=== PATIENT | male | born 1970 | race Caucasian/White ===

== ENCOUNTER 2020-10-12 17:36 | Inpatient (IN) | payer OTHER, SELFPAY ==
[2020-10-12] VITALS (7 sets, daily range): BP systolic 95–106; BP diastolic 49–70; PULSE 91–106; RESP 14–18; TEMP 36.5–37.7; O2SAT 97–100; BMI 18.6
--- NOTE | 2020-10-12 17:57 | CT_ITS ---
EXAMINATION: CT CHEST, ABDOMEN AND PELVIS WITHOUT CONTRAST CLINICAL INFORMATION: Diarrhea, distention, body aches with fevers and chills. COMPARISON: Chest x-ray 07/04/2020 TECHNIQUE: 5 mm thin axial and reformatted 3 mm thin sagittal and coronal images of chest, abdomen pelvis were obtained without contrast. DLP 1028 FINDINGS: Chest: There is centrilobular emphysematous changes of both lungs. No acute pneumonic consolidation seen. There is platelike atelectasis right lower lobe adjacent to the major fissure. There is 3 mm nodule right lower lobe axial image 263/7. In addition there is mild nodularity along the right major fissure axial image 263/7 and 255/7. There is bilateral small pleural effusions. No pleural thickening or calcification seen. The thyroid lobes are symmetrical and normal. The central trachea and the bronchi widely patent. Small shotty lymph nodes are seen in the mediastinum. The largest subpectoral lymph node measures 7 mm. No abnormal mediastinal mass seen. The axilla and the chest wall appears unremarkable. Abdomen and pelvis: The liver is compressed by diffuse ascites no focal lesion seen. No intrahepatic ductal dilatation. In the left upper quadrant spleen is not visualized. In its place is a large cystic lesion with some heterogeneity within the adjacent calcification and lakesha which could be secondary to splenectomy. The lesion measures 8.1 x 6.5 x 7.3 cm. The cystic lesion in the body of the pancreas measuring 1.6 x 1.1 cm. Previously it measured 2.3 x 3.3 cm and is much smaller. There are surgical lakesha visualized in the tail of the pancreas likely from previous intervention. The gallbladder is nondistended with a small radiolucent 1.2 cm stone. The adrenal glands are unremarkable. Both kidneys are normal size, shape and position. No radiopaque renal calculi or hydronephrosis seen. Diffuse sigmoid diverticulosis with residual barium within the diverticuli in the sigmoid and descending colon. No colonic distention seen. Scattered fluid visualized in small bowel loops without distention. There is postsurgical changes or sutures seen in the upper pelvis likely small bowel loops on axial image 61/8. Appendix is not seen. There is no free air. There is a large amount of ascites. The abdominal aorta is normal caliber. Mild periportal lymph nodes are visualized, similar to previous study. There is evidence of previous periumbilical anterior abdominal wall hernia repair with mesh in place with mild scarring or thickening in this region. Imaging to the pelvis reveals nondistended urinary bladder the prostate gland is normal. Bone windows reveal no lytic or sclerotic process. CT/CT abdomen pelvis wo con IMPRESSION: Bilateral small pleural effusions. The millimeter nodule right lower lobe and atelectatic changes right lower lobe. Resident lower abdomen diffuse ascites with mass effect on the abdominal structures. There are postsurgical changes in the tail of pancreas is small cystic lesion in the mid pancreas small and previous study. The spleen is absent. In its place is a cystic lesion with internal heterogeneity, stable or smaller. This may represent a intracapsular old hematoma/seroma or cystic lesion continuous with the tail of the pancreas described previously. Solitary radiolucent gallstone. Soft tissue lesion is considered less likely. Consider ultrasound abdomen.
--- NOTE | 2020-10-12 17:57 | ECG_ITS ---
Test Reason : ABDOMINALPAIN Blood Pressure : / mmHG Vent. Rate : 095 BPM Atrial Rate : 095 BPM P-R Int : 150 ms QRS Dur : 118 ms QT Int : 400 ms P-R-T Axes : 083 097 074 degrees QTc Int : 502 ms Normal sinus rhythm Pulmonary disease pattern Right bundle branch block Abnormal ECG When compared with ECG of 04-JUL-2020 08:03, ST now depressed in Anterior leads T wave inversion now evident in Anterior leads Referred By: Juana Lei Electronically Signed By:PHYLLIS ESPINOSA
--- NOTE | 2020-10-12 18:03 | ED_ITS ---
HPI - Abdominal Pain General Chief Complaint: General Medical Stated Complaint: N/V,BODY ACHES,CHILLS,?FEVER,? COVID Time Seen by Provider: 10/12/20 17:50 Source: patient and old records reviewed Mode of arrival: EMS Limitations: other (very poor historian) History of Present Illness HPI narrative: body aches, abdominal pain and diarrhea x 2 days, left [facility] on 10/04 that was his last negative COVID test, EMS found a handle of vodka that was empty in the house MD elicited complaint: abdominal pain and other (diarrhea, body aches) Pertinent past history: other (ETOH pancreatitis) Onset (ago): day(s) (2) Pain Consistency: constant Location: diffuse Severity: severe Quality: stabbing Radiation: none Migration to: no migration Exacerbating factors: movement Relieving factors: nothing Context: history of similar episodes Associated symptoms: nausea, diarrhea, chills and other (body aches) Related Data Home Medications Medication Instructions Recorded Confirmed furosemide 20 mg PO DAILY 10/12/20 10/12/20 hydroxyzine HCl 25 mg PO QID PRN 10/12/20 10/12/20 [id number] [Zenpep] 1 cap PO TID 10/12/20 10/12/20 oxycodone 10 mg PO QID PRN 10/12/20 10/12/20 Allergies Allergy/AdvReac Type Severity Reaction Status Date / Time No Known Allergies Allergy Unverified 06/30/20 14:48 Review of Systems Review of Systems Constitutional : No Weight loss, No Fever, pos Chills ENT/Mouth : No sore throat, No Rhinorrhea Eyes: No Swelling, No Redness Cardiovascular : No Chest Pain, No SOB, pos Edema Respiratory : No Cough, No Sputum, No Wheezing Gastrointestinal : Positive Nausea, no Vomiting, positive Diarrhea, positive abdominal Pain, No Hematochezia, No Melena Genitourinary : No Dysuria, No Urinary Frequency, No Hematuria, No Urgency Musculoskeletal : No joint pain, No Myalgias, No Joint Swelling Skin : No Skin Lesions, No rash Neuro : pos Weakness, No Numbness, No Dizziness, No Headache Psych : No Anxiety/Panic, No Depression Heme/Lymph: No Bruising, No Lymphadenopathy Endocrine : No Polyuria, No Polydipsia All other systems reviewed and are negative. Physical Exam Vital Signs: Vital Signs: Last Vital Signs Temp 97.7 F 10/12/20 19:39 Pulse 94 10/12/20 21:00 Resp 16 10/12/20 20:50 BP 99/61 10/12/20 21:00 Pulse Ox 97 10/12/20 19:39 Body Mass Index 18.6 Appearance: Alert. Oriented X3. Anxious mild acute distress. Eyes: Pupils equal, round and reactive to light. ENT: Pharynx normal. Neck: Normal inspection. Neck supple. CVS: Normal heart rate and rhythm. Pulses normal. Respiratory: No respiratory distress. Breath sounds normal. Abdomen: Soft and distended with moderate tenderness. Skin: Skin warm and dry. Normal skin color. Normal skin turgor. Extremities: bilateral pitting 1+ lower extremity edema. No calf ttp Left calf ulcer noted with no sig drainage and no odor, mild surrounding erythema Neuro: Oriented X 3. No motor deficit. No sensory deficit. Procedures Paracentesis Time Out Performed: Yes Indication: possible spontaneous bacterial peritonitis Procedure: diagnostic paracentesis Location: RLQ Local Anesthetic: lidocaine 1% Amount of anesthesia used (mL): 5 Bedside Ultrasound Used: yes, Ascites confirmed and location marked Preparation: sterile prep and drape Amount of fluid obtained (mL): 3,000 Fluid: cloudy Post Procedure Exam: awake, alert Patient Tolerated Procedure: well Complications: none Course Course Course Narrative: given WBC count, ascites and c/o pain with chills at home, prophylactic SBP treatment done, anticipate admission at this time MDM - Abdominal Pain MDM Narrative Medical decision making narrative: 50 yo male with hx of ETOH, pancreatitis s/p splenectomy and hernia repair here with abdominal pain /distention and found to have empty handle of vodka in house, could be obstruction/pancreatitis with ileus at this time will obtain labs, EKG, CXR, CT scan of abdomen for pancreatitis, IVF, IV albumin, IV fentanyl for pain Lab Data Result diagrams: 10/12/20 20:06 10/12/20 20:06 Labs: Lab Results 10/12/20 10/12/20 10/12/20 Range/Units 20:05 20:05 20:05 WBC (4.8-10.8) X10*3/uL RBC (4.60-5.80) X10*6/uL Hgb (14.0-18.0) g/dl Hct (42-52) % MCV (80-98) fL MCH (27.0-33.0) pg MCHC (31.0-36.0) g/dl RDW (11.0-16.0) % Plt Count (160-400) X10*3/uL MPV (9.4-12.4) fL Immature Gran % (Auto) (0.0-0.4) % Neut % (Auto) (45-73) % Lymph % (Auto) (20-40) % [place] % (Auto) (2-11) % Eos % (Auto) (0-4) % Baso % (Auto) (0-2) % Lymph # (Auto) (1.2-4.9) X10*3/uL [place] # (Auto) (0.1-1.2) X10*3/uL Eos # (Auto) (0.0-0.4) X10*3/uL Baso # (Auto) (0.0-0.2) X10*3/uL Abs Immat Gran (auto) (0.00-0.03) X10*3/uL Absolute Neuts (auto) (2.0-8.3) X10*3/uL Absolute Nucleated RBC (0.0-0.012) X10*3/uL Nucleated RBC % (auto) (0.0-0.2) /100WBC Smear Tech's Comments PT 19.4 H (10.8-13.0) SEC INR 1.6 H (0.9-1.1) APTT 37.7 (24.1-38.0) SEC Lactic Acid 1.8 (0.5-2.0) mmol/L Calcium 7.2 L (8.4-10.2) mg/dL Magnesium 1.5 L (1.6-2.6) mg/dL Total Bilirubin 1.2 H (0.0-1.0) mg/dL Direct Bilirubin 0.8 H (0.0-0.5) mg/dL AST 34 (5-37) U/L ALT 20 (0-40) U/L Alkaline Phosphatase 121 H (39-117) U/L Ammonia (13-55) umol/L Lactate Dehydrogenase 161 (118-273) U/L Total Protein 6.2 L (6.5-8.0) g/dL Albumin 1.5 L (3.5-5.0) g/dL Lipase 53 (8-78) U/L COVID-19 (SANAZ) (Negative) COVID-19 Clin Com 10/12/20 10/12/20 10/12/20 Range/Units 20:06 20:06 20:06 WBC 16.6 H (4.8-10.8) X10*3/uL RBC 3.00 L (4.60-5.80) X10*6/uL Hgb 9.6 L (14.0-18.0) g/dl Hct 27.0 L (42-52) % MCV 90.0 (80-98) fL MCH 32.0 (27.0-33.0) pg MCHC 35.6 (31.0-36.0) g/dl RDW 15.9 (11.0-16.0) % Plt Count 361 (160-400) X10*3/uL MPV 9.7 (9.4-12.4) fL Immature Gran % (Auto) 0.4 (0.0-0.4) % Neut % (Auto) 75.0 H (45-73) % Lymph % (Auto) 15.0 L (20-40) % [place] % (Auto) 9.1 (2-11) % Eos % (Auto) 0.1 (0-4) % Baso % (Auto) 0.4 (0-2) % Lymph # (Auto) 2.5 (1.2-4.9) X10*3/uL [place] # (Auto) 1.5 H (0.1-1.2) X10*3/uL Eos # (Auto) 0.0 (0.0-0.4) X10*3/uL Baso # (Auto) 0.1 (0.0-0.2) X10*3/uL Abs Immat Gran (auto) 0.06 H (0.00-0.03) X10*3/uL Absolute Neuts (auto) 12.4 H (2.0-8.3) X10*3/uL Absolute Nucleated RBC 0.000 (0.0-0.012) X10*3/uL Nucleated RBC % (auto) 0.0 (0.0-0.2) /100WBC Smear Tech's Comments VERIFIED PT (10.8-13.0) SEC INR (0.9-1.1) APTT (24.1-38.0) SEC Lactic Acid (0.5-2.0) mmol/L Calcium (8.4-10.2) mg/dL Magnesium (1.6-2.6) mg/dL Total Bilirubin (0.0-1.0) mg/dL Direct Bilirubin (0.0-0.5) mg/dL AST (5-37) U/L ALT (0-40) U/L Alkaline Phosphatase (39-117) U/L Ammonia 55 (13-55) umol/L Lactate Dehydrogenase (118-273) U/L Total Protein (6.5-8.0) g/dL Albumin (3.5-5.0) g/dL Lipase (8-78) U/L COVID-19 (SANAZ) Negative (Negative) COVID-19 Clin Com See Note ECG Data Attestation: I personally reviewed and interpreted this ECG as follows: ECG interpretation date: 10/12/20 ECG interpretation time: 19:10 Interpretation: Rate: 95 Rhythm: NSR [place]: right Normal P waves. Normal YUDI. RBBB ST T wave : nonspecific no JOSE qTC: prolonged prior studies: no change from prior no acute ischemia The study has been interpreted contemporaneously by me. . Critical Care Time Critical Care Time Critical Care Time: Yes Total Critical Care Time: 60 Attestation: repeat IV medications, review of records, paracentesis, volume resuscitation I attest to this time spent taking care of the patient Discharge Plan Discharge Clinical Impression: Ascites, Myalgia, Hypomagnesemia Patient Disposition: Admitted As Inpatient Prescriptions: No Action hydroxyzine HCl 25 mg Tablet 25 mg PO QID PRN (Reason: Anxiety) RF: 0 furosemide 20 mg tablet 20 mg PO DAILY RF: 0 oxycodone 10 mg tablet 10 mg PO QID PRN (Reason: Pain (Scale Score 7-10)) RF: 0 Zenpep 5,000-17,000- 24,000 unit capsule,delayed release(DR/EC) 1 cap PO TID RF: 0 PMFSH Past Medical History Attestation statement: The following information was validated with the patient. Medical History Alcoholism GERD (gastroesophageal reflux disease) HTN (hypertension) Liver disease Pancreatitis PTSD (post-traumatic stress disorder) Seizure Surgical History H/O hernia repair H/O splenectomy Social History Social History (Updated 10/12/20 @ 18:29 by Juana Lei DO) Alcohol intake: current Smoking Status: Never smoker Use of substances other than those prescribed or required for medical reasons: No Advance Directives: No Advance Directives Information Provided: No
[2020-10-12] MEDS: Albumin Human 25 % 100 ML IV ×2 (18:54→21:42)
[2020-10-12] MEDS: fentaNYL citrate/PF 100 MCG/2 ML VIAL 25 MCG IVPUSH ×2 (18:54→20:50)
[2020-10-12] MEDS: ondansetron HCL 4 MG/2 ML VIAL IVPUSH (18:54)
[2020-10-12] MEDS: cefTRIAXone sodium 1 GM in 0.9 % Sodium Chloride 50 ML IV (19:30)
[2020-10-12] MEDS: 0.9 % Sodium Chloride 500 ML IV (19:31)
--- NOTE | 2020-10-12 20:15 | PC.NURSE ---
Patient reporting 9/10 fully body pain, yells when touched anywhere. Reports being bone chilling cold. Extra blankets given. afebrile. Pending blood work and covid result to move pt to main ER for further care. Fluids infusing.
[2020-10-12 20:17] LABS: Basophils Absolute Auto 0.1 X10*3/uL (0.0-0.2); Basophils Percent Auto 0.4 % (0-2); Eosinophils Percent Auto 0.1 % (0-4); Hemoglobin 9.6 g/dl (14.0-18.0); Imm Gran Abs Auto 0.06 X10*3/uL (0.00-0.03); Imm Gran Pct Auto 0.4 % (0.0-0.4); Lymphocytes Absolute Auto 2.5 X10*3/uL (1.2-4.9); MANUAL DIFF FLAG SCAN; Mean Corpuscular HGB Conc 35.6 g/dl (31.0-36.0); Mean Platelet Volume 9.7 fL (9.4-12.4); Monocytes Absolute Auto 1.5 X10*3/uL (0.1-1.2); Monocytes Percent Auto 9.1 % (2-11); Neutrophils Absolute Auto 12.4 X10*3/uL (2.0-8.3); Platelet Count 361 X10*3/uL (160-400); Red Cell Distribution Width 15.9 % (11.0-16.0); SCAN SMEAR FLAG 1; White Blood Count 16.6 X10*3/uL (4.8-10.8)
[2020-10-12 20:24] LABS: INTERNATIONAL NORM RATIO 1.6 (0.9-1.1); Prothrombin Time 19.4 SEC (10.8-13.0)
[2020-10-12 20:26] LABS: Partial Thromboplastin Time 37.7 SEC (24.1-38.0)
[2020-10-12 20:31] LABS: Ammonia 55 umol/L (13-55); COVID-19 Test Negative (Negative)
[2020-10-12 20:35] LABS: SLIDE REVIEW VERIFIED
[2020-10-12 20:35] LABS: Lactic Acid 1.8 mmol/L (0.5-2.0)
[2020-10-12] MEDS: Lidocaine HCl 2 % MPF 5 ML VIAL SUBCUT (20:55)
[2020-10-12 21:01] LABS: Alanine Aminotransferase 20 U/L (0-40); Albumin Level 1.5 g/dL (3.5-5.0); Alkaline Phosphatase 121 U/L (39-117); Aspartate Amino Transferase 34 U/L (5-37); Bilirubin Direct 0.8 mg/dL (0.0-0.5); Bilirubin Total 1.2 mg/dL (0.0-1.0); Calcium 7.2 mg/dL (8.4-10.2); Lactate Dehydrogenase 161 U/L (118-273); Lipase 53 U/L (8-78); Magnesium 1.5 mg/dL (1.6-2.6); Total Protein 6.2 g/dL (6.5-8.0)
--- NOTE | 2020-10-12 21:15 | PC.NURSE ---
care assumed at 2044- pt moved to main ed, plan for periccentesis per dr. harden.
[2020-10-12] MEDS: Magnesium Sulfate/H2O 2 GM/50 ML PIGGYBACK IV (21:42)
[2020-10-12 22:04] LABS: RBC Peritoneal Fluid < 0.002 X10*6/uL; WBC Peritoneal Fluid < 0.003 X10*3/uL
[2020-10-12 22:26] LABS: B Type Natriuretic Peptide 105 pg/mL (<100)
[2020-10-12 22:31] LABS: BF Shift QC OK YES; Man Diluent Bkgrd OK YES
[2020-10-12 22:32] LABS: Monocytes Peritoneal Fl 83 %; Neutrophils Peritoneal Fluid 17 %
[2020-10-12 22:33] LABS: Ethanol < 10 mg/dL
[2020-10-12 22:33] LABS: Anion Gap 12 (12-20); Blood Urea Nitrogen 8 mg/dL (9-16); Calcium 7.2 mg/dL (8.4-10.2); Carbon Dioxide 25 mmol/L (22-29); Chloride 103 mmol/L (96-108); Creatinine Clr Calc Pharmacy 142.9; Estimated Glomerular Filt Rate > 60; Glucose Random 102 mg/dL (60-115); Potassium 3.5 mmol/l (3.3-5.1); Sodium 136 mmol/L (135-145)
[2020-10-12] MEDS: Midodrine HCl 5 MG TABLET PO (22:59)
[2020-10-13] VITALS (11 sets, daily range): BP systolic 86–109; BP diastolic 52–76; PULSE 73–91; RESP 14–20; TEMP 36.4–36.9; O2SAT 97–100
--- NOTE | 2020-10-13 01:22 | US_ITS ---
EXAMINATION: US ABDOMEN COMPLETE CLINICAL INFORMATION: Gallstones seen on CT. COMPARISON: CT abdomen and pelvis 10/12/2020 TECHNIQUE: Real-time imaging of the abdominal viscera. FINDINGS: Limited exam due to overlying gas. PANCREAS: Normal. ABDOMINAL AORTA: The mid and distal segments abdominal aorta normal caliber. The proximal abdominal aorta is not visualized. INFERIOR VENA CAVA: Visualized portions are normal. LIVER: There is mild ascites. The liver is normal in size. The liver contour is normal. Parenchymal echogenicity is normal. No focal hepatic lesion. There is no intrahepatic biliary duct dilatation seen. GALLBLADDER: There are multiple non shadowing echogenic gallstones and echogenic debris. No wall thickening seen. Gallbladder wall thickness of 0.6 cm. COMMON BILE DUCT: Normal in caliber measuring 0.6 cm in diameter. RIGHT KIDNEY: Normal. No hydronephrosis. No renal calculi or focal parenchymal lesions. The kidney measures 10.9 cm in maximum dimension. LEFT KIDNEY: Normal. No hydronephrosis. No renal calculi or focal parenchymal lesions. The kidney measures 10.2 cm in maximum dimension. SPLEEN: There is anechoic complex cystic lesion seen in in the splenic fossa and measures 9.0 x 7.0 cm. The spleen has been surgically removed. FREE FLUID: None. US/US abdomen complete IMPRESSION: Mild ascites. The liver is diffusely echogenic without any focal lesions. No echogenic debris and echogenic gallstones with wall thickness of 0.6 cm. Spleen has been surgically removed. In the splenic fossa is a complex cystic lesion question old hematoma/seroma.
[2020-10-13] MEDS: oxyCODONE HCl Immed Release 5 MG TABLET 10 MG PO ×2 (01:32→17:02)
[2020-10-13] MEDS: Morphine Sulfate 2 MG/ML CARTRIDGE IVPUSH ×4 (02:24→20:06)
[2020-10-13 03:29] LABS: CDIFF Ag Negative (Negative); CDIFF Internal ctrl Dots and bkg OK (V); CDiff Toxin Negative (Negative)
[2020-10-13 05:38] LABS: Basophils Absolute Auto 0.1 X10*3/uL (0.0-0.2); Basophils Percent Auto 0.5 % (0-2); Eosinophils Percent Auto 0.1 % (0-4); Hematocrit 22.8 % (42-52); Hemoglobin 8.2 g/dl (14.0-18.0); Imm Gran Abs Auto 0.04 X10*3/uL (0.00-0.03); Imm Gran Pct Auto 0.3 % (0.0-0.4); Lymphocytes Absolute Auto 2.5 X10*3/uL (1.2-4.9); Lymphocytes Percent Auto 19.1 % (20-40); Mean Corpuscular Hemoglobin 32.3 pg (27.0-33.0); Mean Corpuscular Volume 89.8 fL (80-98); Mean Platelet Volume 9.7 fL (9.4-12.4); Monocytes Absolute Auto 1.7 X10*3/uL (0.1-1.2); Monocytes Percent Auto 12.9 % (2-11); Neutrophils Absolute Auto 8.7 X10*3/uL (2.0-8.3); Neutrophils Percent Auto 67.1 % (45-73); Platelet Count 324 X10*3/uL (160-400); Red Blood Count 2.54 X10*6/uL (4.60-5.80); Red Cell Distribution Width 15.3 % (11.0-16.0); SCAN SMEAR FLAG 1; White Blood Count 12.9 X10*3/uL (4.8-10.8)
[2020-10-13 05:41] LABS: MANUAL DIFF FLAG NO
[2020-10-13 06:14] LABS: Anion Gap 10 (12-20); Blood Urea Nitrogen 8 mg/dL (9-16); Calcium 7.2 mg/dL (8.4-10.2); Carbon Dioxide 23 mmol/L (22-29); Chloride 104 mmol/L (96-108); Creatinine Clr Calc Pharmacy 154.8; Estimated Glomerular Filt Rate > 60; Glucose Random 130 mg/dL (60-115); Potassium 3.1 mmol/l (3.3-5.1); Sodium 134 mmol/L (135-145)
[2020-10-13 06:26] LABS: pH Peritoneal Fluid 7.66
--- NOTE | 2020-10-13 06:27 | PM.IMHP ---
History of Present Illness Date of Service: 10/12/20 Chief Complaint: Abdominal pain This is a 50-year-old male with past medical history of liver cirrhosis secondary to alcoholism, hypertension, pancreatitis, PTSD, seizure who presents to the hospital with complaints of generalized body ache worse in the belly. Patient reports that his abdomen has been hurting for the past 4 days, nonradiating, 10/10, associated with chills but no fever, has some nausea, and constant diarrhea all day, he has no urinary symptoms and no lower extremity edema. Patient reports that he has not gotten his paracentesis since April and would like to have his abdomen drained. Patient denies any other symptoms including no headache, change in vision, no chest pain, no shortness of breath, no weakness or tingling. to the ED found to have a blood pressure of 95/64, temp of 99.8?, heart rate of 92, respiratory rate of 16, satting 98% on room air. Hemoglobin of 16.6 which appears to be chronic, sodium of 134, potassium of 3.1, BUN of 8, creatinine of 0.48, BNP of 105, magnesium of 1.5, total bili of 1.2, direct of 0.08, albumin of 1.5 Past medical history: Liver cirrhosis secondary to alcohol use, hypertension, pancreatitis, PTSD, seizure Surgical history: Splenectomy, hernia repair Family history: Patient is Not sure Social history: Comes from home, smokes more than pack a day he has been drinking few days but drink yesterday, denies any history of withdrawals, does not use illicit drugs Review of Systems Review of Systems: Yes all other systems are reviewed and are negative [facility] Medical History Alcoholism GERD (gastroesophageal reflux disease) HTN (hypertension) Liver disease Pancreatitis PTSD (post-traumatic stress disorder) Seizure Surgical History H/O hernia repair H/O splenectomy Social History (Updated 10/12/20 @ 18:29 by Juana Lei DO) Alcohol intake: former Smoking Status: Current every day smoker Use of substances other than those prescribed or required for medical reasons: No Advance Directives: No Advance Directives Information Provided: No Meds Allergies Allergy/AdvReac Type Severity Reaction Status Date / Time No Known Allergies Allergy Unverified 06/30/20 14:48 Home Medications Medication Instructions Recorded Confirmed Type furosemide 20 mg PO DAILY 10/12/20 10/12/20 History hydroxyzine HCl 25 mg PO QID PRN 10/12/20 10/12/20 History qffchc-dcpovwaz-wijcuzw [Zenpep] 1 cap PO TID 10/12/20 10/12/20 History oxycodone 10 mg PO QID PRN 10/12/20 10/12/20 History Physical Exam Vital Signs and Narrative: Vital Signs: Last Vital Signs Temp 98.1 F 10/13/20 06:11 Pulse 77 10/13/20 06:11 Resp 16 10/13/20 06:11 BP 92/59 L 10/13/20 06:11 Pulse Ox 100 10/13/20 06:11 Body Mass Index 18.6 Const: General: cooperative and no acute distress Orientation/consciousness: patient oriented x3 Eyes: General: appearance normal, both eyes and all related structures Pupils: Equal, round and reactive pupils present Resp: Effort & Inspection: normal respiratory effort and able to speak in complete sentences Cardio: Rate: regular rate Rhythm: regular rhythm GI: Other: Patient screams ?ow? even when I likely touch his abdomen. I was not able to do a complete abdominal exam due to his severe tenderness. Even without me touching him patient is screaming in pain Palpation (GI): Soft to palpation Skin: General skin exam: no rashes or lesions noted Neuro: General: patient oriented x3 Cranial nerves: Yes Equal, round and reactive pupils present Cognition (Neuro): normal cognition Extrem: General: Yes normal to inspection and Yes no pedal edema Results Labs CBC and Chem 7: 10/12/20 20:06 10/13/20 05:32 Labs: Laboratory Results - last 24 hr 10/12/20 10/12/20 10/12/20 10:14 20:05 20:05 MCV MCH MCHC RDW Plt Count MPV Immature Gran % (Auto) Neut % (Auto) Lymph % (Auto) [place] % (Auto) Eos % (Auto) Baso % (Auto) Lymph # (Auto) [place] # (Auto) Eos # (Auto) Baso # (Auto) Abs Immat Gran (auto) Absolute Neuts (auto) Absolute Nucleated RBC Nucleated RBC % (auto) Smear Tech's Comments PT 19.4 H INR 1.6 H APTT 37.7 Anion Gap Estim Creat Clear Calc Estimated GFR Random Glucose Lactic Acid Calcium 7.2 L Magnesium 1.5 L Total Bilirubin 1.2 H Direct Bilirubin 0.8 H AST 34 ALT 20 Alkaline Phosphatase 121 H Ammonia Lactate Dehydrogenase 161 Total Creatine Kinase 32 L B-Natriuretic Peptide Total Protein 6.2 L Albumin 1.5 L Lipase 53 Peritoneal pH Peritoneal WBC Peritoneal RBC Periton Neutrophils Peritoneal Monocytes Ethyl Alcohol C. difficile Toxin A&B C. difficile Antigen C. difficile Interpret COVID-19 ([facility]) COVID-19 Clin Com 10/12/20 10/12/20 10/12/20 20:05 20:06 20:06 MCV MCH MCHC RDW Plt Count MPV Immature Gran % (Auto) Neut % (Auto) Lymph % (Auto) [place] % (Auto) Eos % (Auto) Baso % (Auto) Lymph # (Auto) [place] # (Auto) Eos # (Auto) Baso # (Auto) Abs Immat Gran (auto) Absolute Neuts (auto) Absolute Nucleated RBC Nucleated RBC % (auto) Smear Tech's Comments PT INR APTT Anion Gap 12 Estim Creat Clear Calc 142.9 Estimated GFR > 60 Random Glucose 102 Lactic Acid 1.8 Calcium 7.2 L Magnesium Total Bilirubin Direct Bilirubin AST ALT Alkaline Phosphatase Ammonia 55 Lactate Dehydrogenase Total Creatine Kinase B-Natriuretic Peptide Total Protein Albumin Lipase Peritoneal pH Peritoneal WBC Peritoneal RBC Periton Neutrophils Peritoneal Monocytes Ethyl Alcohol C. difficile Toxin A&B C. difficile Antigen C. difficile Interpret COVID-19 ([facility]NAZ) COVID-19 Clin Com 10/12/20 10/12/20 10/12/20 20:06 20:06 20:06 MCV 90.0 MCH 32.0 MCHC 35.6 RDW 15.9 Plt Count 361 MPV 9.7 Immature Gran % (Auto) 0.4 Neut % (Auto) 75.0 H Lymph % (Auto) 15.0 L [place] % (Auto) 9.1 Eos % (Auto) 0.1 Baso % (Auto) 0.4 Lymph # (Auto) 2.5 [place] # (Auto) 1.5 H Eos # (Auto) 0.0 Baso # (Auto) 0.1 Abs Immat Gran (auto) 0.06 H Absolute Neuts (auto) 12.4 H Absolute Nucleated RBC 0.000 Nucleated RBC % (auto) 0.0 Smear Tech's Comments VERIFIED PT INR APTT Anion Gap Estim Creat Clear Calc Estimated GFR Random Glucose Lactic Acid Calcium Magnesium Total Bilirubin Direct Bilirubin AST ALT Alkaline Phosphatase Ammonia Lactate Dehydrogenase Total Creatine Kinase B-Natriuretic Peptide 105 H Total Protein Albumin Lipase Peritoneal pH Peritoneal WBC Peritoneal RBC Periton Neutrophils Peritoneal Monocytes Ethyl Alcohol C. difficile Toxin A&B C. difficile Antigen C. difficile Interpret COVID-19 ([facility]NAZ) Negative COVID-19 Celiro Com See Note 10/12/20 10/12/20 10/12/20 20:07 21:28 21:28 MCV MCH MCHC RDW Plt Count MPV Immature Gran % (Auto) Neut % (Auto) Lymph % (Auto) [place] % (Auto) Eos % (Auto) Baso % (Auto) Lymph # (Auto) [place] # (Auto) Eos # (Auto) Baso # (Auto) Abs Immat Gran (auto) Absolute Neuts (auto) Absolute Nucleated RBC Nucleated RBC % (auto) Smear Tech's Comments PT INR APTT Anion Gap Estim Creat Clear Calc Estimated GFR Random Glucose Lactic Acid Calcium Magnesium Total Bilirubin Direct Bilirubin AST ALT Alkaline Phosphatase Ammonia Lactate Dehydrogenase Total Creatine Kinase B-Natriuretic Peptide Total Protein Albumin Lipase Peritoneal pH 7.66 Peritoneal WBC < 0.003 Peritoneal RBC < 0.002 Periton Neutrophils 17 Peritoneal Monocytes 83 Ethyl Alcohol < 10 C. difficile Toxin A&B C. difficile Antigen C. difficile Interpret COVID-19 ([facility]) COVID-[employer] 10/13/20 10/13/20 02:44 05:32 MCV MCH MCHC RDW Plt Count MPV Immature Gran % (Auto) Neut % (Auto) Lymph % (Auto) [place] % (Auto) Eos % (Auto) Baso % (Auto) Lymph # (Auto) [place] # (Auto) Eos # (Auto) Baso # (Auto) Abs Immat Gran (auto) Absolute Neuts (auto) Absolute Nucleated RBC Nucleated RBC % (auto) Smear Tech's Comments PT INR APTT Anion Gap 10 L Estim Creat Clear Calc 154.8 Estimated GFR > 60 Random Glucose 130 H Lactic Acid Calcium 7.2 L Magnesium Total Bilirubin Direct Bilirubin AST ALT Alkaline Phosphatase Ammonia Lactate Dehydrogenase Total Creatine Kinase B-Natriuretic Peptide Total Protein Albumin Lipase Peritoneal pH Peritoneal WBC Peritoneal RBC Periton Neutrophils Peritoneal Monocytes Ethyl Alcohol C. difficile Toxin A&B Negative C. difficile Antigen Negative C. difficile Interpret SEE NOTE COVID-19 ([facility]) COVID-19 Clin Com Imaging Radiologist's Impressions: Impressions Abdomen/Pelvis CT 10/12/20 17:57 IMPRESSION: Bilateral small pleural effusions. The millimeter nodule right lower lobe and atelectatic changes right lower lobe. Resident lower abdomen diffuse ascites with mass effect on the abdominal structures. There are postsurgical changes in the tail of pancreas is small cystic lesion in the mid pancreas small and previous study. The spleen is absent. In its place is a cystic lesion with internal heterogeneity, stable or smaller. This may represent a intracapsular old hematoma/seroma or cystic lesion continuous with the tail of the pancreas described previously. Solitary radiolucent gallstone. Soft tissue lesion is considered less likely. Consider ultrasound abdomen. Chest CT 10/12/20 17:57 IMPRESSION: Bilateral small pleural effusions. The millimeter nodule right lower lobe and atelectatic changes right lower lobe. Resident lower abdomen diffuse ascites with mass effect on the abdominal structures. There are postsurgical changes in the tail of pancreas is small cystic lesion in the mid pancreas small and previous study. The spleen is absent. In its place is a cystic lesion with internal heterogeneity, stable or smaller. This may represent a intracapsular old hematoma/seroma or cystic lesion continuous with the tail of the pancreas described previously. Solitary radiolucent gallstone. Soft tissue lesion is considered less likely. Consider ultrasound abdomen. Assessment and Plan (1) Intractable abdominal pain: Status: Acute (2) Ascites: Qualifiers: Ascites type: due to alcoholic cirrhosis Qualified Code(s): K70.31 - Alcoholic cirrhosis of liver with ascites Status: Acute (3) Hypomagnesemia: Status: Acute (4) Diarrhea: Status: Acute This is a 50-year-old male with past medical history of alcoholic cirrhosis who presents to the hospital with abdominal pain # intractable abdominal pain - most likely secondary to ascites - SBP ruled out with paracentesis being negative for elevated WBC or neutrophil count - had 3 L drained by ED physician - will start him on pain medications - follow peritoneal cultures # diarrhea - denies using any antibiotics recently - will send for C diff # hypomagnesemia - repleted - follow level # ascites - high 3 L of paracentesis in the ED - follow cultures - may need scheduled thoracentesis for the future DVT prophylaxis: Heparin subQ
[2020-10-13 06:28] LABS: Albumin Peritoneal Fluid 0.6; LDH Peritoneal Fluid 48; Total Protein Peritoneal Fluid 1.4
[2020-10-13 06:29] LABS: Glucose Peritoneal Fluid 100
--- NOTE | 2020-10-13 07:17 | PC.NURSE ---
report taken from louise beckham pt sitting up in bed, asking for juice, tolerating po w/o issue. pt asking about pain medication. pt educated about recent admin and indication to spread narcotic pain med administration out for safety. pt has cognitive delay, requires frequent redirection. plan for inpt admission.
[2020-10-13] MEDS: Heparin Sodium,Porcine 5,000 UNIT/ML VIAL 5000 UNIT SUBCUT (08:34)
[2020-10-13] MEDS: Nicotine 21 MG PATCH.TD24 TRANSDERMA (08:35)
[2020-10-13] MEDS: Acetaminophen 325 MG TABLET 650 MG PO (08:39)
[2020-10-13] MEDS: 0.9 % Sodium Chloride Flush 3 ML SYRINGE IVFLUSH ×3 (08:39→20:12)
--- NOTE | 2020-10-13 08:47 | PC.NURSE ---
pt back from [facility], medicated per emar. asking for prn tylenol, given. pt tolerating po. personal effects moved closer to bedside. awaiting bed assignment.
--- NOTE | 2020-10-13 15:56 | P.PNIM_ITS ---
Subjective Subjective Date of Service: 10/13/20 Interval History: seen and examined this afternoon in the ED awaiting bed to the floor reports abdominal pain improved reports drinking daily last few days, just a few sips reports n/v/d -- unclear if with blood or not ROS General - no fevers or chills Cardiovascular - no chest pain Respiratory - no shortness of breath or cough Abdominal- +abdominal pain Physical Exam Vital Signs: Vital Signs: Last Vital Signs Temp 98.1 F 10/13/20 06:11 Pulse 76 10/13/20 15:23 Resp 16 10/13/20 15:23 BP 98/63 10/13/20 15:23 Pulse Ox 97 10/13/20 15:23 Body Mass Index 18.6 Const: Other: General - no acute distress, appears comfortable Cardiovascular - regular rate and rhythm, S1-S2 Lungs - normal respiratory effort, clear to auscultation bilaterally, no wheezing Abdomen - mildly distended -- no rebound or guarding Extremities - no edema bilaterally Neuro - awake and alert Objective Data Current Medications Generic Name Dose Route Start Last Admin Trade Name Juarezq PRN Reason Stop Dose Admin Acetaminophen 650 mg 10/13/20 01:22 10/13/20 08:39 Acetaminophen 325 Mg Tablet PO 650 mg Q6H PRN Administration Pain, Mild (Pain Scale 1-3) Docusate Sodium 100 mg 10/13/20 01:22 Docusate Sodium 100 Mg Capsule PO DAILY PRN Constipation Hydroxyzine HCl 25 mg 10/13/20 01:22 Hydroxyzine Hcl 25 Mg Tablet PO QID PRN Anxiety Morphine Sulfate 2 mg 10/13/20 01:54 10/13/20 10:31 Morphine Sulfate 2 Mg/Ml Cartridge IVPUSH 2 mg Q4H PRN Administration Pain, Severe (Pain Scale 7-10) Nicotine 21 mg 10/13/20 09:00 10/13/20 08:35 Nicotine 21 Mg Patch.Td24 TRANSDERMA 21 mg DAILY LIS Administration Non-Formulary Medication 1 cap 10/13/20 09:00 Odofbs-Swcshgti-Omyxxmw [Zenpep] PO TID LIS Ondansetron HCl 4 mg 10/13/20 01:22 Ondansetron Hcl 4 Mg/2 Ml Vial IVPUSH Q8H PRN Nausea and Vomiting Oxycodone HCl 10 mg 10/13/20 01:22 10/13/20 01:32 Oxycodone Hcl Immed Release 5 Mg Tablet PO 10 mg QID PRN Administration Pain (Scale Score 7-10) Pharmacy Consult 1 each 10/12/20 17:56 Consult Rx Perform Med Rec MISCELLANE ONCE PRN Consult order Pharmacy Consult 1 each 10/12/20 19:00 Consult Rx Perform Med Rec MISCELLANE ONCE PRN Consult order Sodium Chloride 3 ml 10/13/20 01:22 10/13/20 08:39 0.9 % Sodium Chloride Flush 3 Ml Syringe IVFLUSH 3 ml QSHIFT LIS Administration Labs CBC & Chem 7: 10/13/20 05:32 10/13/20 05:32 Microbiology Microbiology Results: Microbiology 10/12/20 21:28 Ascites Fluid Gram Stain - Final Assessment and Plan (1) Ascites: Status: Acute Assessment and Plan: This is a 50 yo M with a history of alcohol abuse and dependence who presents with abodminal pain. He is admitted for fruther work up. 1. Abdominal pain suspect multifactorial -- chronic pancreatitis (no evidence of acute based off i maging / normal lipase) + possible gastritis empiric ppi PO pain meds PRN, IV for severe advance diet 2. Diarrhea per pt report per ED RN -- none so far in the ED check c. diff if recurrent 3. Ascites / alcoholic liver disease no evidence SBP by cell count f/u cultures hold diuretics today 4. Hypotension, asymptomatic not due to sepsis, but secondary to alcoholic liver disease start PO midodorine 5. Acute on Chronic anemia no evidence of blood loss repeat h/h empiric ppi hold heparin 6. HypoK replete PO Full Code DVT pptx, mechanical due to significant anemia / coagulopathy
--- NOTE | 2020-10-13 16:06 | PC.NURSE ---
pt has been resting most of the day, appears comfortable after prn pain professor of medicine. vss. hospitalist at bedside earlier to follow up w pt d/t being admitted yesterday. pt expresses wanting to try to eat a little soup or broth tonight for dinner. wctm for discharge needs. first call for pt report to c unsuccessful.
[2020-10-13] MEDS: Omeprazole 20 MG CAPSULE.DR PO (17:02)
[2020-10-13] MEDS: Potassium Chloride ER 20 MEQ TAB.ER.PRT 40 MEQ PO (17:02)
[2020-10-13] MEDS: hydrOXYzine HCL 25 MG TABLET PO (17:03)
[2020-10-13 19:00] LABS: Hematocrit 28.3 % (42-52)
[2020-10-13] MEDS: Midodrine HCl 5 MG TABLET PO (20:07)
[2020-10-13] MEDS: ondansetron HCL 4 MG/2 ML VIAL IVPUSH (20:17)
[2020-10-14] VITALS (13 sets, daily range): BP systolic 95–114; BP diastolic 59–66; PULSE 72–90; RESP 16–20; TEMP 36.4–36.8; O2SAT 96–99
[2020-10-14] MEDS: Morphine Sulfate 2 MG/ML CARTRIDGE IVPUSH ×6 (00:15→22:50)
[2020-10-14] MEDS: Omeprazole 20 MG CAPSULE.DR PO (04:48)
[2020-10-14] MEDS: Nicotine 21 MG PATCH.TD24 TRANSDERMA (07:59)
[2020-10-14] MEDS: 0.9 % Sodium Chloride Flush 3 ML SYRINGE IVFLUSH ×2 (07:59→17:15)
[2020-10-14] MEDS: Midodrine HCl 5 MG TABLET PO ×3 (08:00→20:16)
[2020-10-14 08:01] LABS: Hematocrit 30.5 % (42-52); Hemoglobin 10.4 g/dl (14.0-18.0); Mean Corpuscular HGB Conc 34.1 g/dl (31.0-36.0); Mean Corpuscular Hemoglobin 31.7 pg (27.0-33.0); Mean Platelet Volume 12.1 fL (9.4-12.4); Platelet Count 233 X10*3/uL (160-400); Red Blood Count 3.28 X10*6/uL (4.60-5.80); Red Cell Distribution Width 16.2 % (11.0-16.0); White Blood Count 9.7 X10*3/uL (4.8-10.8)
[2020-10-14] MEDS: ondansetron HCL 4 MG/2 ML VIAL IVPUSH (10:48)
[2020-10-14] MEDS: oxyCODONE HCl Immed Release 5 MG TABLET 10 MG PO (10:48)
[2020-10-14 11:32] LABS: Alanine Aminotransferase 16 U/L (0-40); Albumin Level 1.7 g/dL (3.5-5.0); Alkaline Phosphatase 99 U/L (39-117); Anion Gap 10 (12-20); Aspartate Amino Transferase 30 U/L (5-37); Bilirubin Direct 0.7 mg/dL (0.0-0.5); Blood Urea Nitrogen 8 mg/dL (9-16); Carbon Dioxide 22 mmol/L (22-29); Chloride 104 mmol/L (96-108); Creatinine Clr Calc Pharmacy 161.5; Estimated Glomerular Filt Rate > 60; Glucose Random 99 mg/dL (60-115); Potassium 4.2 mmol/l (3.3-5.1); Sodium 132 mmol/L (135-145); Total Protein 5.6 g/dL (6.5-8.0)
[2020-10-14 11:52] LABS: Calcium 7.2 mg/dL (8.4-10.2)
--- NOTE | 2020-10-14 11:58 | MHC.CM.PN ---
dc plan resumption of servcies thru [facility]/which are director of consumer affairs and rn..pt also requesting a script for a hospitial bed
--- NOTE | 2020-10-14 12:07 | P.PNIM_ITS ---
Subjective Subjective Date of Service: 10/14/20 Interval History: seen and examined this afternoon in the ED having abdominal pain not eating much ROS General - no fevers or chills Cardiovascular - no chest pain Respiratory - no shortness of breath or cough Abdominal- +abdominal pain, +nausea Physical Exam Vital Signs: Vital Signs: Last Vital Signs Temp 97.8 F 10/14/20 11:20 Pulse 81 10/14/20 11:20 Resp 18 10/14/20 11:20 BP 114/66 10/14/20 11:20 Pulse Ox 98 10/14/20 11:20 Body Mass Index 18.6 Const: Other: General - no acute distress, appears comfortable Cardiovascular - regular rate and rhythm, S1-S2 Lungs - normal respiratory effort, clear to auscultation bilaterally, no wheezing Abdomen - mildly distended -- no rebound or guarding Extremities - no edema bilaterally Neuro - awake and alert Objective Data Current Medications Generic Name Dose Route Start Last Admin Trade Name Freq PRN Reason Stop Dose Admin Acetaminophen 650 mg 10/13/20 01:22 10/13/20 08:39 Acetaminophen 325 Mg Tablet PO 650 mg Q6H PRN Administration Pain, Mild (Pain Scale 1-3) Lipase/Protease/Amylase 1 cap 10/14/20 15:00 Lipase/Prot/Amylase 24/76/120k 1 Cap Capsule.Dr PO TID LIS Docusate Sodium 100 mg 10/13/20 01:22 Docusate Sodium 100 Mg Capsule PO DAILY PRN Constipation Hydroxyzine HCl 25 mg 10/13/20 01:22 10/13/20 17:03 Hydroxyzine Hcl 25 Mg Tablet PO 25 mg QID PRN Administration Anxiety Midodrine 5 mg 10/13/20 21:00 10/14/20 08:00 Midodrine Hcl 5 Mg Tablet PO 5 mg TID LIS Administration Morphine Sulfate 2 mg 10/13/20 01:54 10/14/20 07:58 Morphine Sulfate 2 Mg/Ml Cartridge IVPUSH 2 mg Q4H PRN Administration Pain, Severe (Pain Scale 7-10) Nicotine 21 mg 10/13/20 09:00 10/14/20 07:59 Nicotine 21 Mg Patch.Td24 TRANSDERMA 21 mg DAILY LIS Administration Ondansetron HCl 4 mg 10/13/20 01:22 10/14/20 10:48 Ondansetron Hcl 4 Mg/2 Ml Vial IVPUSH 4 mg Q8H PRN Administration Nausea and Vomiting Oxycodone HCl 10 mg 10/13/20 01:22 10/14/20 10:48 Oxycodone Hcl Immed Release 5 Mg Tablet PO 10 mg QID PRN Administration Pain (Scale Score 7-10) Pantoprazole Sodium 40 mg 10/14/20 12:15 Pantoprazole Sodium 40 Mg/10 Ml Vial IVPUSH DAILY@0630 [facility] Pharmacy Consult 1 each 10/12/20 17:56 Consult Rx Perform Med Rec MISCELLANE ONCE PRN Consult order Pharmacy Consult 1 each 10/12/20 19:00 Consult Rx Perform Med Rec MISCELLANE ONCE PRN Consult order Sodium Chloride 3 ml 10/13/20 01:22 10/14/20 07:59 0.9 % Sodium Chloride Flush 3 Ml Syringe IVFLUSH 3 ml QSHIFT [facility] Administration Labs CBC & Chem 7: 10/14/20 05:59 10/14/20 10:06 Microbiology Microbiology Results: Microbiology 10/12/20 21:28 Ascites Fluid Gram Stain - Final 10/12/20 21:28 Ascites Fluid Anaerobic Culture - Preliminary Culture in progress. 10/12/20 21:28 Ascites Fluid Body Fluid Culture - Preliminary No growth after 1 day 10/12/20 21:33 Blood - Venous Blood Culture - Preliminary No growth after 24 hours. 10/12/20 20:05 Blood - Venous Blood Culture - Preliminary No growth after 24 hours. Assessment and Plan (1) Ascites: Status: Acute Assessment and Plan: This is a 50 yo M with a history of alcohol abuse and dependence who presents with abodminal pain. He is admitted for fruther work up. 1. Abdominal pain still persists check lipase downgrade diet to clears change PPI to IV and consult GI 2. Diarrhea at home none in the hospital if recurrent, check c. diff 3. Ascites / alcoholic liver disease no evidence SBP by cell count f/u cultures -- negative @ 24 hours 4. Hypotension, asymptomatic not due to sepsis, but secondary to alcoholic liver disease resolved with midodorine 5. Acute on Chronic anemia h/h stable continue monitoring 6. HypoK resolved Full Code DVT pptx, mechanical due to significant anemia / coagulopathy
[2020-10-14 12:33] LABS: Lipase 59 U/L (8-78)
[2020-10-14] MEDS: Pantoprazole Sodium 40 MG/10 ML VIAL IVPUSH (12:41)
[2020-10-14] MEDS: Lipase/Prot/Amylase 24/76/120K 1 CAP CAPSULE.DR PO ×2 (17:15→20:16)
[2020-10-15] VITALS (8 sets, daily range): BP systolic 90–99; BP diastolic 52–65; PULSE 76–84; RESP 16–18; TEMP 36.1–36.8; O2SAT 95–99
[2020-10-15] MEDS: 0.9 % Sodium Chloride Flush 3 ML SYRINGE IVFLUSH ×3 (01:21→15:45)
[2020-10-15] MEDS: oxyCODONE HCl Immed Release 5 MG TABLET 10 MG PO ×2 (01:24→15:57)
[2020-10-15] MEDS: Pantoprazole Sodium 40 MG/10 ML VIAL IVPUSH (06:21)
[2020-10-15 07:14] LABS: Hematocrit 27.4 % (42-52); Hemoglobin 9.8 g/dl (14.0-18.0); Mean Corpuscular HGB Conc 35.8 g/dl (31.0-36.0); Mean Corpuscular Hemoglobin 32.1 pg (27.0-33.0); Mean Corpuscular Volume 89.8 fL (80-98); Mean Platelet Volume 11.6 fL (9.4-12.4); Platelet Count 272 X10*3/uL (160-400); Red Blood Count 3.05 X10*6/uL (4.60-5.80); Red Cell Distribution Width 15.7 % (11.0-16.0)
[2020-10-15 07:48] LABS: Alanine Aminotransferase 14 U/L (0-40); Alkaline Phosphatase 93 U/L (39-117); Aspartate Amino Transferase 31 U/L (5-37); Bilirubin Direct 0.6 mg/dL (0.0-0.5); Bilirubin Total 0.8 mg/dL (0.0-1.0); Blood Urea Nitrogen 7 mg/dL (9-16); Creatinine Clr Calc Pharmacy 165.1; Estimated Glomerular Filt Rate > 60; Glucose Random 95 mg/dL (60-115); Total Protein 5.3 g/dL (6.5-8.0)
[2020-10-15] MEDS: Lipase/Prot/Amylase 24/76/120K 1 CAP CAPSULE.DR PO ×3 (07:52→21:04)
[2020-10-15] MEDS: Midodrine HCl 5 MG TABLET PO ×3 (07:52→21:04)
[2020-10-15] MEDS: Nicotine 21 MG PATCH.TD24 TRANSDERMA (07:53)
[2020-10-15] MEDS: Morphine Sulfate 2 MG/ML CARTRIDGE IVPUSH ×3 (07:57→17:53)
[2020-10-15 07:59] LABS: Albumin Level 1.6 g/dL (3.5-5.0); Anion Gap 11 (12-20); Calcium 7.1 mg/dL (8.4-10.2); Carbon Dioxide 22 mmol/L (22-29); Chloride 103 mmol/L (96-108); Potassium 3.7 mmol/l (3.3-5.1); Sodium 132 mmol/L (135-145)
--- NOTE | 2020-10-15 07:59 | P.CNGI_ITS ---
History of Present Illness Data of Consult Service Date: 10/15/20 Requesting physician: Rob Miller Primary Care Provider: Lor Dhillon Reason for consult: Abdominal pain, chronic pancreatitis, cirrhosis and ascites 50 yo male whom I have not seen since 2019. He was admitted with abdominal pain, genealized body aches and abdominal distention. He appears more chronically ill than when I last saw him. He tells me that he is no longer drinking alcohol(???not sure how true this is.) He is having trouble swallowing. He can not eat. He had recently been hospitalized @ ?[facility]? He went to Rehab. He was discharged home on the 04 of October. He became increasingly weak. He had nausea and diarrhea. He says he has services to his house to assist with med management etc. His uncle does his grocery shopping. He does have a sister. His mother used to be his primary master carpenter but about 2 years ago. He has been dx with chronic liver disease with an element of cirrhosis--underlying Steatohepatitis from his years of excessive alcohol. Ascites has been ? persistent. Review of Systems Constitutional: Constitutional: Reports anorexia, Reports body ache(s), Reports lethargy, Reports poor appetite, Reports weakness and Reports weight loss Cardiovascular: Cardiovascular: Denies dyspnea Respiratory: Respiratory: Denies chest congestion, Denies dyspnea and Denies wheezing Comments: Still smoking 1 ppd. Gastrointestinal: Gastrointestinal: Reports abdominal pain, Denies melena, Reports dyspepsia and Reports diarrhea (no clear characteristics--he has not had any since in hospital) Comments: Multiple episodes of pancreatitis and pancreatic pseudocysts--presumptive component of acquired pancreatic insufficiency. He purportedly had a script for pancreatic enzyme supplementation but I could not tell if he was taking it correctly when we reviewed his meds. EGD done 2019: June:Hematemesis: Hemorrhagic exudative esophagitis- extensive. small Hiatal hernia. Neurologic: Reports seizure-like activity and Reports weakness Comments: 2011--Subdural hematoma,evacuation. Subsequent TBI, seizure activity. Memory issues hard to evaluate in setting of recurrent alcohol abuse. Psychiatric: Psychiatric: Reports depression, Reports difficulty concentrating and Reports mood swings Comments: hx of PTSD--some alcohol abuse hx. Allergic/Immunologic: Allergic/Immunologic: Denies wheezing PMFSH Past Medical History Medical History Alcoholism Chronic alcoholic pancreatitis Cirrhosis, alcoholic GERD (gastroesophageal reflux disease) HTN (hypertension) Hx SBO Hx SBO Liver disease Pancreatitis PTSD (post-traumatic stress disorder) Seizure Surgical History Surgical History H/O hernia repair H/O splenectomy (~2014) History of esophagogastroduodenoscopy (EGD) Hx of colonoscopy Hx of resection of small bowel Social History Social History Household Members: None Housing: Apartment Do you presently have visiting nurse or other home services: Yes Alcohol intake: former Smoking Status: Current every day smoker Tobacco Type: Cigarette Packs Per Day: 1 Cigarettes Per Day: 20.0 Patient Interested in Nicotine Replacement: Yes Patient Given Instructions on How to Stop Smoking: No (Pt refuses) Use of substances other than those prescribed or required for medical reasons: No Currently Displaying Signs/Symptoms of Drug Intoxication Withdrawal: No Have you been hit, kicked, punched, or otherwise hurt by someone within the past year? If so, by whom?: No Do you feel safe in your current relationship?: No Current Relationship Is there a partner from a previous relationship who is making you feel unsafe now?: No Are you made to feel afraid or neglected: No Advance Directives: No Advance Directives Information Provided: No Do you have thoughts of harming others: None Do you have a plan to hurt others: No Plan Recently lost weight without trying: Yes service: No Meds Allergies Allergy/AdvReac Type Severity Reaction Status Date / Time No Known Allergies Allergy Unverified 06/30/20 14:48 Home Medications Medication Instructions Recorded Confirmed Type furosemide 20 mg PO DAILY 10/12/20 10/12/20 History hydroxyzine HCl 25 mg PO QID PRN 10/12/20 10/12/20 History [id number] [Zenpep] 1 cap PO TID 10/12/20 10/12/20 History oxycodone 10 mg PO QID PRN 10/12/20 10/12/20 History Physical Exam Vital Signs: Vital Signs: Last Vital Signs Temp 98.0 F 10/15/20 07:35 Pulse 78 10/15/20 07:35 Resp 18 10/15/20 07:35 BP 96/54 L 10/15/20 07:35 Pulse Ox 97 10/15/20 07:35 Body Mass Index 18.6 Const: General: cooperative, no acute distress, alert and ill appearing Nutritional Appearance: malnourished and underweight Orientation/consciousness: patient oriented x3 Resp: Effort & Inspection: normal respiratory effort, no cough and not labored Cardio: Rate: regular rate Rhythm: regular rhythm GI: Inspection: Yes distended and Yes scar Palpation (GI): Tenderness to palpation present (GI), no masses and Ascites present (I saw him after paracentesis had been done.) Rectal Exam - Male: Yes deferred Neuro: General: patient oriented x3 and moves all extremities Results Labs CBC & Chem 7: 10/15/20 05:56 10/15/20 05:56 Labs: Short CBC 10/14/20 10/15/20 Range/Units 05:59 05:56 WBC 9.7 10.0 (4.8-10.8) X10*3/uL Hgb 10.4 L 9.8 L (14.0-18.0) g/dl Hct 30.5 L 27.4 L (42-52) % Plt Count 233 D 272 (160-400) X10*3/uL BMP 10/14/20 10/14/20 10/15/20 05:59 10:06 05:56 Sodium Cancelled 132 L Potassium Cancelled 4.2 D Chloride Cancelled 104 Carbon Dioxide Cancelled 22 BUN Cancelled 8 L 7 L Creatinine Cancelled 0.46 L 0.45 L Calcium Cancelled 7.2 L Liver Function 10/14/20 10/14/20 10/15/20 Range/Units 05:59 10:06 05:56 Total Bilirubin Cancelled 1.0 0.8 Direct Bilirubin Cancelled 0.7 H 0.6 H AST Cancelled 30 31 ALT Cancelled 16 14 Alkaline Phosphatase Cancelled 99 93 Albumin Cancelled 1.7 L Microbiology Microbiology Results: Microbiology 10/12/20 21:33 Blood - Venous Blood Culture - Preliminary No growth after 48 hours. 10/12/20 20:05 Blood - Venous Blood Culture - Preliminary No growth after 48 hours. 10/12/20 21:28 Ascites Fluid Gram Stain - Final 10/12/20 21:28 Ascites Fluid Anaerobic Culture - Preliminary Culture in progress. 10/12/20 21:28 Ascites Fluid Body Fluid Culture - Preliminary No growth after 1 day Assessment and Plan (1) GERD (gastroesophageal reflux disease): Status: Inactive Patient had had extensive erosive esophagitis. He is now having dysphagia. He is malnourished. He needs further evaluation with EGD to assess healing, need for medical treatment, etc. HAS BEEN SCHEDULED / URGENT EVALUATION. (2) Diarrhea: Status: Acute Has not had a bowel movement since admission. ? related to pancreatic insufficiency when eating or ETOH--still not sure if he is not drinking. (3) Intractable abdominal pain: Status: Acute not sure if this is due to abdominal wall hyperesthesia or chronic pancreatitis (4) Cirrhosis, alcoholic: Status: Acute 3 US/US abdomen complete IMPRESSION: Mild ascites. The liver is diffusely echogenic without any focal lesions. No echogenic debris and echogenic gallstones with wall thickness of 0.6 cm. Spleen has been surgically removed. In the splenic fossa is a complex cystic lesion question old hematoma/seroma. Dictated By:JACLYN BRAVO MD Signed By:<Electronically signed by JACLYN BRAVO MD in [place]>10/13/20 0857 DD/ 0122 TD/TT: Clinical Review Specialist: [facility] [place] Patient has clearly had alcohol induced Steatohepatitis--he could probably have significant fibrosis cirrhosis By now. Will continue to evaluate. He has multiple reasons for severe hypoalbuminemia. Patient has a normal bilirubing. INR is elevated @ 1.6 but this could be nutritional as well. (5) Chronic alcoholic pancreatitis: Status: Acute ?chronic pancreatitis vs hyperesthetic pain around distention abdomen, mesh, adhesions--will continue to observe. findings abd/pelvic ct:RESSION: Bilateral small pleural effusions. The millimeter nodule right lower lobe and atelectatic changes right lower lobe. Resident lower abdomen diffuse ascites with mass effect on the abdominal structures. There are postsurgical changes in the tail of pancreas is small cystic lesion in the mid pancreas small and previous study. The spleen is absent. In its place is a cystic lesion with internal heterogeneity, stable or smaller. This may represent a intracapsular old hematoma/seroma or cystic lesion continuous with the tail of the pancreas described previously. Solitary radiolucent gallstone. Soft tissue lesion is considered less likely. Consider ultrasound abdomen. Dictated By:JACLYN BRAVO MD Signed By:<Electronically signed by JACLYN BRAVO MD in [place]>10/12/201925 DD/ 56 TD/TT: Clinical Review Specialist: CHANDAN HE WILL NEED PANCREATIC ENZYME SUPPLEMENTATION--FOR NOW WILL NEED TO BE OTHER THAN PILL FORM. FOCUS ON ENSURE OR EQUIVALENT PROTEIN SOURCE TO GET MAX NEEDED PROTEIN CALORIES IN DAILY.
--- NOTE | 2020-10-15 11:37 | P.PNIM_ITS ---
Subjective Subjective Date of Service: 10/15/20 Interval History: seen and examined this afternoon in the ED pain improved wants solid food multiple other non-medical requests ROS General - no fevers or chills Cardiovascular - no chest pain Respiratory - no shortness of breath or cough Abdominal- +abdominal pain, +nausea Physical Exam 2 Vital Signs: Vital Signs: Last Vital Signs Temp 97.6 F 10/15/20 11:33 Pulse 76 10/15/20 11:33 Resp 18 10/15/20 11:33 BP 95/54 L 10/15/20 11:33 Pulse Ox 96 10/15/20 11:33 Body Mass Index 18.6 Const: Other: General - no acute distress, appears comfortable Cardiovascular - regular rate and rhythm, S1-S2 Lungs - normal respiratory effort, clear to auscultation bilaterally, no wheezing Abdomen - mildly distended -- no rebound or guarding Extremities - no edema bilaterally Neuro - awake and alert Objective Data Current Medications Generic Name Dose Route Start Last Admin Trade Name Freq PRN Reason Stop Dose Admin Acetaminophen 650 mg 10/13/20 01:22 10/13/20 08:39 Acetaminophen 325 Mg Tablet PO 650 mg Q6H PRN Administration Pain, Mild (Pain Scale 1-3) Lipase/Protease/Amylase 1 cap 10/14/20 15:00 10/15/20 07:52 Lipase/Prot/Amylase 24/76/120k 1 Cap Capsule.Dr PO 1 cap TID LIS Administration Docusate Sodium 100 mg 10/13/20 01:22 Docusate Sodium 100 Mg Capsule PO DAILY PRN Constipation Hydroxyzine HCl 25 mg 10/13/20 01:22 10/13/20 17:03 Hydroxyzine Hcl 25 Mg Tablet PO 25 mg QID PRN Administration Anxiety Midodrine 5 mg 10/13/20 21:00 10/15/20 07:52 Midodrine Hcl 5 Mg Tablet PO 5 mg TID LIS Administration Morphine Sulfate 2 mg 10/13/20 01:54 10/15/20 07:57 Morphine Sulfate 2 Mg/Ml Cartridge IVPUSH 2 mg Q4H PRN Administration Pain, Severe (Pain Scale 7-10) Nicotine 21 mg 10/13/20 09:00 10/15/20 07:53 Nicotine 21 Mg Patch.Td24 TRANSDERMA 21 mg DAILY LIS Administration Ondansetron HCl 4 mg 10/13/20 01:22 10/14/20 10:48 Ondansetron Hcl 4 Mg/2 Ml Vial IVPUSH 4 mg Q8H PRN Administration Nausea and Vomiting Oxycodone HCl 10 mg 10/13/20 01:22 10/15/20 01:24 Oxycodone Hcl Immed Release 5 Mg Tablet PO 10 mg QID PRN Administration Pain (Scale Score 7-10) Pantoprazole Sodium 40 mg 10/14/20 12:15 10/15/20 06:21 Pantoprazole Sodium 40 Mg/10 Ml Vial IVPUSH 40 mg DAILY@0630 [facility] Administration Pharmacy Consult 1 each 10/12/20 17:56 Consult Rx Perform Med Rec MISCELLANE ONCE PRN Consult order Pharmacy Consult 1 each 10/12/20 19:00 Consult Rx Perform Med Rec MISCELLANE ONCE PRN Consult order Sodium Chloride 3 ml 10/13/20 01:22 10/15/20 07:54 0.9 % Sodium Chloride Flush 3 Ml Syringe IVFLUSH 3 ml QSHIFT [facility] Administration Labs CBC & Chem 7: 10/15/20 05:56 10/15/20 05:56 Microbiology Microbiology Results: Microbiology 10/12/20 21:28 Ascites Fluid Gram Stain - Final 10/12/20 21:28 Ascites Fluid Anaerobic Culture - Preliminary No growth. 10/12/20 21:28 Ascites Fluid Body Fluid Culture - Final No growth after 2 days 10/12/20 21:33 Blood - Venous Blood Culture - Preliminary No growth after 48 hours. 10/12/20 20:05 Blood - Venous Blood Culture - Preliminary No growth after 48 hours. Assessment and Plan (1) Ascites: Status: Acute Assessment and Plan: This is a 50 yo M with a history of alcohol abuse and dependence who presents with abodminal pain. He is admitted for fruther work up. 1. Abdominal pain DDx - alcoholic gastritis vs chronic pancreatitis vs ascites improved advance diet PPI GI consult 2. Diarrhea resolved 3. Ascites / alcoholic liver disease no evidence SBP by cell count f/u cultures -- negative to date 4. Hypotension, asymptomatic not due to sepsis, but secondary to alcoholic liver disease midodrine 5. Acute on Chronic anemia h/h stable continue monitoring 6. HypoK resolved Full Code DVT pptx, mechanical due to significant anemia / coagulopathy
--- NOTE | 2020-10-15 12:29 | MHC.CM.PN ---
CM attempted to contact pts legal guardian, Eri Schofield ([phone]) to inform her of pts admission and deliver pts medicare rights. A VM was left informing her of above and a copy of pts medicare rights were faxed to her at [phone] per her preferred method of IMM delivery during previous admissions. CM direct number provided for return calls
[2020-10-15] MEDS: ondansetron HCL 4 MG/2 ML VIAL IVPUSH (13:31)
[2020-10-16] VITALS (15 sets, daily range): BP systolic 93–105; BP diastolic 50–68; PULSE 62–85; RESP 17–20; TEMP 36.1–37; O2SAT 95–100
[2020-10-16] MEDS: 0.9 % Sodium Chloride Flush 3 ML SYRINGE IVFLUSH ×4 (00:27→23:04)
[2020-10-16] MEDS: Morphine Sulfate 2 MG/ML CARTRIDGE IVPUSH ×5 (00:27→23:04)
[2020-10-16] MEDS: Nicotine 21 MG PATCH.TD24 TRANSDERMA (08:25)
[2020-10-16] MEDS: Lipase/Prot/Amylase 24/76/120K 1 CAP CAPSULE.DR PO ×3 (08:25→21:48)
[2020-10-16] MEDS: Midodrine HCl 5 MG TABLET PO ×3 (08:26→21:48)
--- NOTE | 2020-10-16 10:22 | P.CONAN_ITS ---
[facility] Past Medical History Medical History Alcoholism Chronic alcoholic pancreatitis Cirrhosis, alcoholic GERD (gastroesophageal reflux disease) HTN (hypertension) Hx SBO Hx SBO Liver disease Pancreatitis PTSD (post-traumatic stress disorder) Seizure Surgical History Surgical History H/O hernia repair H/O splenectomy (~2014) History of esophagogastroduodenoscopy (EGD) Hx of colonoscopy Hx of resection of small bowel Social History Social History Household Members: None Housing: Apartment Do you presently have visiting nurse or other home services: Yes Alcohol intake: former Smoking Status: Current every day smoker Tobacco Type: Cigarette Packs Per Day: 1 Cigarettes Per Day: 20.0 Patient Interested in Nicotine Replacement: Yes Patient Given Instructions on How to Stop Smoking: No (Pt refuses) Use of substances other than those prescribed or required for medical reasons: No Currently Displaying Signs/Symptoms of Drug Intoxication Withdrawal: No Have you been hit, kicked, punched, or otherwise hurt by someone within the past year? If so, by whom?: No Do you feel safe in your current relationship?: No Current Relationship Is there a partner from a previous relationship who is making you feel unsafe now?: No Are you made to feel afraid or neglected: No Advance Directives: No Advance Directives Information Provided: No Do you have thoughts of harming others: None Do you have a plan to hurt others: No Plan Recently lost weight without trying: Yes service: No Meds Allergies Allergy/AdvReac Type Severity Reaction Status Date / Time No Known Allergies Allergy Unverified 06/30/20 14:48 Home Medications Medication Instructions Recorded Confirmed Type furosemide 20 mg PO DAILY 10/12/20 10/12/20 History hydroxyzine HCl 25 mg PO QID PRN 10/12/20 10/12/20 History [id number] [Zenpep] 1 cap PO TID 10/12/20 10/12/20 History oxycodone 10 mg PO QID PRN 10/12/20 10/12/20 History Exam Exam Date and Time: October 16, 2020 1022 Height,Weight and Vital Signs: Height 5 ft 11 in Weight 60.8 kg Last Vital Signs Temp 97 F 10/16/20 10:11 Pulse 72 10/16/20 10:11 Resp 20 10/16/20 10:11 BP 99/68 10/16/20 10:11 Pulse Ox 98 10/16/20 10:11 Pertinent Lab Results Pertinent Lab Results: Laboratory Tests 10/12/20 10/12/20 10/12/20 10:14 20:05 20:05 WBC RBC Hgb Hct MCV MCH MCHC RDW Plt Count MPV Immature Gran % (Auto) Neut % (Auto) Lymph % (Auto) Travis % (Auto) Eos % (Auto) Baso % (Auto) Lymph # (Auto) Travis # (Auto) Eos # (Auto) Baso # (Auto) Abs Immat Gran (auto) Absolute Neuts (auto) Absolute Nucleated RBC Nucleated RBC % (auto) Smear Tech's Comments PT 19.4 H INR 1.6 H APTT 37.7 Sodium Potassium Chloride Carbon Dioxide Anion Gap BUN Creatinine Estim Creat Clear Calc Estimated GFR Random Glucose Lactic Acid Calcium 7.2 L Magnesium 1.5 L Total Bilirubin 1.2 H Direct Bilirubin 0.8 H AST 34 ALT 20 Alkaline Phosphatase 121 H Ammonia Lactate Dehydrogenase 161 Total Creatine Kinase 32 L B-Natriuretic Peptide Total Protein 6.2 L Albumin 1.5 L Lipase 53 Peritoneal pH Peritoneal WBC Peritoneal RBC Periton Neutrophils Peritoneal Monocytes Peritoneal Tot Protein Peritoneal Albumin Peritoneal LDH Peritoneal Glucose Ethyl Alcohol C. difficile Toxin A&B C. difficile Antigen C. difficile Interpret COVID-19 (SANAZ) COVID-19 Clin Com 10/12/20 10/12/20 10/12/20 20:05 20:06 20:06 WBC RBC Hgb Hct MCV MCH MCHC RDW Plt Count MPV Immature Gran % (Auto) Neut % (Auto) Lymph % (Auto) Travis % (Auto) Eos % (Auto) Baso % (Auto) Lymph # (Auto) Travis # (Auto) Eos # (Auto) Baso # (Auto) Abs Immat Gran (auto) Absolute Neuts (auto) Absolute Nucleated RBC Nucleated RBC % (auto) Smear Tech's Comments PT INR APTT Sodium 136 Potassium 3.5 Chloride 103 Carbon Dioxide 25 Anion Gap 12 BUN 8 L Creatinine 0.52 Estim Creat Clear Calc 142.9 Estimated GFR > 60 Random Glucose 102 Lactic Acid 1.8 Calcium 7.2 L Magnesium Total Bilirubin Direct Bilirubin AST ALT Alkaline Phosphatase Ammonia 55 Lactate Dehydrogenase Total Creatine Kinase B-Natriuretic Peptide Total Protein Albumin Lipase Peritoneal pH Peritoneal WBC Peritoneal RBC Periton Neutrophils Peritoneal Monocytes Peritoneal Tot Protein Peritoneal Albumin Peritoneal LDH Peritoneal Glucose Ethyl Alcohol C. difficile Toxin A&B C. difficile Antigen C. difficile Interpret COVID-19 (SANAZ) COVID-19 Physcient 10/12/20 10/12/20 10/12/20 20:06 20:06 20:06 WBC 16.6 H RBC 3.00 L Hgb 9.6 L Hct 27.0 L MCV 90.0 MCH 32.0 MCHC 35.6 RDW 15.9 Plt Count 361 MPV 9.7 Immature Gran % (Auto) 0.4 Neut % (Auto) 75.0 H Lymph % (Auto) 15.0 L Travis % (Auto) 9.1 Eos % (Auto) 0.1 Baso % (Auto) 0.4 Lymph # (Auto) 2.5 Travis # (Auto) 1.5 H Eos # (Auto) 0.0 Baso # (Auto) 0.1 Abs Immat Gran (auto) 0.06 H Absolute Neuts (auto) 12.4 H Absolute Nucleated RBC 0.000 Nucleated RBC % (auto) 0.0 Smear Tech's Comments VERIFIED PT INR APTT Sodium Potassium Chloride Carbon Dioxide Anion Gap BUN Creatinine Estim Creat Clear Calc Estimated GFR Random Glucose Lactic Acid Calcium Magnesium Total Bilirubin Direct Bilirubin AST ALT Alkaline Phosphatase Ammonia Lactate Dehydrogenase Total Creatine Kinase B-Natriuretic Peptide 105 H Total Protein Albumin Lipase Peritoneal pH Peritoneal WBC Peritoneal RBC Periton Neutrophils Peritoneal Monocytes Peritoneal Tot Protein Peritoneal Albumin Peritoneal LDH Peritoneal Glucose Ethyl Alcohol C. difficile Toxin A&B C. difficile Antigen C. difficile Interpret COVID-19 (SANAZ) Negative COVID-19 Clin Com See Note 10/12/20 10/12/20 10/12/20 20:07 21:28 21:28 WBC RBC Hgb Hct MCV MCH MCHC RDW Plt Count MPV Immature Gran % (Auto) Neut % (Auto) Lymph % (Auto) Travis % (Auto) Eos % (Auto) Baso % (Auto) Lymph # (Auto) Travis # (Auto) Eos # (Auto) Baso # (Auto) Abs Immat Gran (auto) Absolute Neuts (auto) Absolute Nucleated RBC Nucleated RBC % (auto) Smear Tech's Comments PT INR APTT Sodium Potassium Chloride Carbon Dioxide Anion Gap BUN Creatinine Estim Creat Clear Calc Estimated GFR Random Glucose Lactic Acid Calcium Magnesium Total Bilirubin Direct Bilirubin AST ALT Alkaline Phosphatase Ammonia Lactate Dehydrogenase Total Creatine Kinase B-Natriuretic Peptide Total Protein Albumin Lipase Peritoneal pH Peritoneal WBC < 0.003 Peritoneal RBC < 0.002 Periton Neutrophils 17 Peritoneal Monocytes 83 Peritoneal Tot Protein 1.4 Peritoneal Albumin 0.6 Peritoneal LDH 48 Peritoneal Glucose 100 Ethyl Alcohol < 10 C. difficile Toxin A&B C. difficile Antigen C. difficile Interpret COVID-19 (SANAZ) COVID-19 Physcient 10/12/20 10/13/20 10/13/20 21:28 02:44 05:32 WBC 12.9 H RBC 2.54 L Hgb 8.2 L Hct 22.8 L MCV 89.8 MCH 32.3 MCHC 36.0 RDW 15.3 Plt Count 324 MPV 9.7 Immature Gran % (Auto) 0.3 Neut % (Auto) 67.1 Lymph % (Auto) 19.1 L Travis % (Auto) 12.9 H Eos % (Auto) 0.1 Baso % (Auto) 0.5 Lymph # (Auto) 2.5 Travis # (Auto) 1.7 H Eos # (Auto) 0.0 Baso # (Auto) 0.1 Abs Immat Gran (auto) 0.04 H Absolute Neuts (auto) 8.7 H Absolute Nucleated RBC 0.000 Nucleated RBC % (auto) 0.0 Smear Tech's Comments PT INR APTT Sodium Potassium Chloride Carbon Dioxide Anion Gap BUN Creatinine Estim Creat Clear Calc Estimated GFR Random Glucose Lactic Acid Calcium Magnesium Total Bilirubin Direct Bilirubin AST ALT Alkaline Phosphatase Ammonia Lactate Dehydrogenase Total Creatine Kinase B-Natriuretic Peptide Total Protein Albumin Lipase Peritoneal pH 7.66 Peritoneal WBC Peritoneal RBC Periton Neutrophils Peritoneal Monocytes Peritoneal Tot Protein Peritoneal Albumin Peritoneal LDH Peritoneal Glucose Ethyl Alcohol C. difficile Toxin A&B Negative C. difficile Antigen Negative C. difficile Interpret SEE NOTE COVID-19 (SANAZ) COVID-19 Clin Com 10/13/20 10/13/20 10/14/20 05:32 18:39 05:59 WBC 9.7 RBC 3.28 L D Hgb 10.0 L D 10.4 L Hct 28.3 L D 30.5 L MCV 93.0 MCH 31.7 MCHC 34.1 RDW 16.2 H Plt Count 233 D MPV 12.1 Immature Gran % (Auto) Neut % (Auto) Lymph % (Auto) Travis % (Auto) Eos % (Auto) Baso % (Auto) Lymph # (Auto) Travis # (Auto) Eos # (Auto) Baso # (Auto) Abs Immat Gran (auto) Absolute Neuts (auto) Absolute Nucleated RBC 0.000 Nucleated RBC % (auto) 0.0 Smear Tech's Comments PT INR APTT Sodium 134 L Potassium 3.1 L Chloride 104 Carbon Dioxide 23 Anion Gap 10 L BUN 8 L Creatinine 0.48 L Estim Creat Clear Calc 154.8 Estimated GFR > 60 Random Glucose 130 H Lactic Acid Calcium 7.2 L Magnesium Total Bilirubin Direct Bilirubin AST ALT Alkaline Phosphatase Ammonia Lactate Dehydrogenase Total Creatine Kinase B-Natriuretic Peptide Total Protein Albumin Lipase Peritoneal pH Peritoneal WBC Peritoneal RBC Periton Neutrophils Peritoneal Monocytes Peritoneal Tot Protein Peritoneal Albumin Peritoneal LDH Peritoneal Glucose Ethyl Alcohol C. difficile Toxin A&B C. difficile Antigen C. difficile Interpret COVID-19 (SANAZ) COVID-19 Clin Com 10/14/20 10/14/20 10/15/20 05:59 10:06 05:56 WBC 10.0 RBC 3.05 L Hgb 9.8 L Hct 27.4 L MCV 89.8 MCH 32.1 MCHC 35.8 RDW 15.7 Plt Count 272 MPV 11.6 Immature Gran % (Auto) Neut % (Auto) Lymph % (Auto) Travis % (Auto) Eos % (Auto) Baso % (Auto) Lymph # (Auto) Travis # (Auto) Eos # (Auto) Baso # (Auto) Abs Immat Gran (auto) Absolute Neuts (auto) Absolute Nucleated RBC 0.000 Nucleated RBC % (auto) 0.0 Smear Tech's Comments PT INR APTT Sodium Cancelled 132 L Potassium Cancelled 4.2 D Chloride Cancelled 104 Carbon Dioxide Cancelled 22 Anion Gap Cancelled 10 L BUN Cancelled 8 L Creatinine Cancelled 0.46 L Estim Creat Clear Calc Cancelled 161.5 Estimated GFR Cancelled > 60 Random Glucose Cancelled 99 Lactic Acid Calcium Cancelled 7.2 L Magnesium Total Bilirubin Cancelled 1.0 Direct Bilirubin Cancelled 0.7 H AST Cancelled 30 ALT Cancelled 16 Alkaline Phosphatase Cancelled 99 Ammonia Lactate Dehydrogenase Total Creatine Kinase B-Natriuretic Peptide Total Protein Cancelled 5.6 L Albumin Cancelled 1.7 L Lipase 59 Peritoneal pH Peritoneal WBC Peritoneal RBC Periton Neutrophils Peritoneal Monocytes Peritoneal Tot Protein Peritoneal Albumin Peritoneal LDH Peritoneal Glucose Ethyl Alcohol C. difficile Toxin A&B C. difficile Antigen C. difficile Interpret COVID-19 (SANAZ) COVID-19 Clin Com 10/15/20 05:56 WBC RBC Hgb Hct MCV MCH MCHC RDW Plt Count MPV Immature Gran % (Auto) Neut % (Auto) Lymph % (Auto) Travis % (Auto) Eos % (Auto) Baso % (Auto) Lymph # (Auto) Travis # (Auto) Eos # (Auto) Baso # (Auto) Abs Immat Gran (auto) Absolute Neuts (auto) Absolute Nucleated RBC Nucleated RBC % (auto) Smear Tech's Comments PT INR APTT Sodium 132 L Potassium 3.7 Chloride 103 Carbon Dioxide 22 Anion Gap 11 L BUN 7 L Creatinine 0.45 L Estim Creat Clear Calc 165.1 Estimated GFR > 60 Random Glucose 95 Lactic Acid Calcium 7.1 L Magnesium Total Bilirubin 0.8 Direct Bilirubin 0.6 H AST 31 ALT 14 Alkaline Phosphatase 93 Ammonia Lactate Dehydrogenase Total Creatine Kinase B-Natriuretic Peptide Total Protein 5.3 L Albumin 1.6 L Lipase Peritoneal pH Peritoneal WBC Peritoneal RBC Periton Neutrophils Peritoneal Monocytes Peritoneal Tot Protein Peritoneal Albumin Peritoneal LDH Peritoneal Glucose Ethyl Alcohol C. difficile Toxin A&B C. difficile Antigen C. difficile Interpret COVID-19 (SANAZ) COVID-19 Clin Com Airway Mallampati Class: II TM Dist: >3cm Neck ROM: Full
--- NOTE | 2020-10-16 11:01 | PM.OP ---
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 Implants: N/A Surgeon: Lori Figueroa MD Anesthesia: MAC (ROBERT) Estimated blood loss (mL): 20 Pathology: none sent Condition: stable Disposition: PACU
--- NOTE | 2020-10-16 11:04 | PM.EVENT ---
Event Note Date of Service: 10/16/20 Event Note: POST PROCEDURE: PATIENT HAS AN INFLAMATORY NARROWING FROM 30-ABOUT 35CM. DILATED WITH SCOPE--CAN NOT DO MORE IN SETTING OF MALNUTRTION. HE ALSO HAS TO BE DEALT WITH PANCREATIC INSUFFICIENCY. NUTRITION CONSULT FULL LIQUID DIET--PUDDING THICKNESS NO SOLID FOODS. MEDS SHOULD BE LIQUID SUSPENSIONS. CARAFATE SUSPENSION AT LEAST ON AWAKENING AND @ HS. PPI THERAPY TO BE IV FOR 24-48HOURS THEN WILL NEED SOMETHING LIKE PREVALITE 30MG BID NEEDS FOLLOWUP. HE WOULD BE BEST MANAGED IN A REHAB SETTING DUE TO RISK, PAST TBI DISABILITY, RECENT WEAKNESS AND DESPITE SERVICES IN HOME HE IS BACK IN HOSPITAL.
[2020-10-16] MEDS: Sucralfate Oral Suspension 1 GM/10 ML ORAL.SUSP PO ×3 (12:06→21:47)
--- NOTE | 2020-10-16 12:11 | HO.PM.IMPN ---
Subjective Subjective Date of Service: 10/16/20 Interval History: seen and examined this afternoon in the ED no new complaints EGD today ROS General - no fevers or chills Cardiovascular - no chest pain Respiratory - no shortness of breath or cough Abdominal- +abdominal pain, +nausea Physical Exam Vital Signs: Vital Signs: Last Vital Signs Temp 98.0 F 10/16/20 11:35 Pulse 62 10/16/20 11:35 Resp 18 10/16/20 11:35 BP 101/64 10/16/20 11:35 Pulse Ox 97 10/16/20 11:35 Body Mass Index 18.6 Const: Other: General - no acute distress, appears comfortable Cardiovascular - regular rate and rhythm, S1-S2 Lungs - normal respiratory effort, clear to auscultation bilaterally, no wheezing Abdomen - mildly distended -- no rebound or guarding Extremities - no edema bilaterally Neuro - awake and alert Objective Data Current Medications Generic Name Dose Route Start Last Admin Trade Name Freq PRN Reason Stop Dose Admin Acetaminophen 650 mg 10/13/20 01:22 10/13/20 08:39 Acetaminophen 325 Mg Tablet PO 650 mg Q6H PRN Administration Pain, Mild (Pain Scale 1-3) Lipase/Protease/Amylase 1 cap 10/14/20 15:00 10/16/20 08:25 Lipase/Prot/Amylase 24/76/120k 1 Cap Capsule.Dr PO 1 cap TID LIS Administration Docusate Sodium 100 mg 10/13/20 01:22 Docusate Sodium 100 Mg Capsule PO DAILY PRN Constipation Hydroxyzine HCl 25 mg 10/13/20 01:22 10/13/20 17:03 Hydroxyzine Hcl 25 Mg Tablet PO 25 mg QID PRN Administration Anxiety Midodrine 5 mg 10/13/20 21:00 10/16/20 08:26 Midodrine Hcl 5 Mg Tablet PO 5 mg TID LIS Administration Morphine Sulfate 2 mg 10/13/20 01:54 10/16/20 08:26 Morphine Sulfate 2 Mg/Ml Cartridge IVPUSH 2 mg Q4H PRN Administration Pain, Severe (Pain Scale 7-10) Nicotine 21 mg 10/13/20 09:00 10/16/20 08:25 Nicotine 21 Mg Patch.Td24 TRANSDERMA 21 mg DAILY LIS Administration Ondansetron HCl 4 mg 10/13/20 01:22 10/15/20 13:31 Ondansetron Hcl 4 Mg/2 Ml Vial IVPUSH 4 mg Q8H PRN Administration Nausea and Vomiting Oxycodone HCl 10 mg 10/13/20 01:22 10/15/20 15:57 Oxycodone Hcl Immed Release 5 Mg Tablet PO 10 mg QID PRN Administration Pain (Scale Score 7-10) Pantoprazole Sodium 40 mg 10/16/20 16:30 Pantoprazole Sodium 40 Mg/10 Ml Vial IVPUSH BID@0630,1630 [facility] Pharmacy Consult 1 each 10/12/20 17:56 Consult Rx Perform Med Rec MISCELLANE ONCE PRN Consult order Pharmacy Consult 1 each 10/12/20 19:00 Consult Rx Perform Med Rec MISCELLANE ONCE PRN Consult order Sodium Chloride 3 ml 10/13/20 01:22 10/16/20 08:25 0.9 % Sodium Chloride Flush 3 Ml Syringe IVFLUSH 3 ml QSHIFT [facility] Administration Sucralfate 1 gm 10/16/20 11:30 10/16/20 12:06 Sucralfate Oral Suspension 1 Gm/10 Ml Oral.Susp PO 1 gm QIDACHS [facility] Administration Labs CBC & Chem 7: 10/15/20 05:56 10/15/20 05:56 Microbiology Microbiology Results: Microbiology 10/12/20 21:28 Ascites Fluid Gram Stain - Final 10/12/20 21:28 Ascites Fluid Anaerobic Culture - Preliminary No growth. 10/12/20 21:28 Ascites Fluid Body Fluid Culture - Final No growth after 2 days 10/12/20 21:33 Blood - Venous Blood Culture - Preliminary No growth after 48 hours. 10/12/20 20:05 Blood - Venous Blood Culture - Preliminary No growth after 48 hours. Assessment and Plan (1) Ascites: Status: Acute Assessment and Plan: This is a 50 yo M with a history of alcohol abuse and dependence who presents with abodminal pain. He is admitted for fruther work up. 1. Abdominal pain - n/v due to Inflmmatory Esophageal stricture s/p EGD with dilation IV PPI, Carafate, liquid diet, pills crushed GI input appreciated 2. Diarrhea resolved 3. Ascites / alcoholic liver disease no evidence SBP by cell count f/u cultures -- negative to date 4. Hypotension, asymptomatic not due to sepsis, but secondary to alcoholic liver disease midodrine 5. Acute on Chronic anemia h/h stable continue monitoring 6. HypoK resolved 7. Severe protein/calorie malnutrition supplements Full Code DVT pptx, mechanical due to significant anemia / coagulopathy dispo: tbd home with services vs str
[2020-10-16] MEDS: Pantoprazole Sodium 40 MG/10 ML VIAL IVPUSH (16:26)
--- NOTE | 2020-10-16 21:37 | OP_ITS ---
SURGEON: Lori Figueroa MD PROCEDURE PERFORMED: EGD with dilation by passing endoscope through an ulcerative inflammatory stricture. ESTIMATED BLOOD LOSS: Less than 20 mL. COMPLICATIONS: No complications. ANESTHESIA: Monitored. ANESTHESIOLOGIST: Dr. Romo ASSISTANTS: No assistant chief engineer. SPECIMENS: No specimens removed. PREOPERATIVE DIAGNOSES: For EGD: Significant dysphagia, protein-calorie malnutrition, history of severe hemorrhagic erosive esophagitis. POSTOPERATIVE DIAGNOSES: Significantly obstructive inflammatory stricture with hemorrhagic erosive esophagitis, distally there is a small hiatal hernia. AUTOMOTIVE GLAZIER: Dr. Figueroa. DESCRIPTION OF PROCEDURE: Video endoscope was introduced without difficulty. It was navigated into the posterior pharynx and into the esophagus. At approximately 80 cm from the incisors there is a restrictive narrowing with exudative ulcerative changes. With gentle pressure, scope was able to pass through this region and area of narrowing continued for 3 and 5 cm. GE junction appeared slightly scarred but non-restrictive, distally this was a small 3 to 4 cm hiatal hernia. On entering the stomach, the mucosa appeared normal. There was no restriction at the pylorus. Duodenal bulb and duodenum appeared endoscopically normal with no ulcerations. PLAN: This patient will need to be on a full regimen of PPI therapy as well as Carafate suspension application. Until his protein-calorie malnutrition is improved serial dilation will be limited. At this point, focusing on improving protein-calorie malnutrition with a full liquid diet with protein supplementation is appropriate. We will obtain Nutrition consult. Management will be difficult with setting of an individual who probably has significant acquired pancreatic insufficiency due to multiple episodes of pancreatitis with past pseudocyst formation, etc. He does have underlying cirrhotic disease improving albumin will take longer than baseline. (All of this is complexed by the fact that he is still probably drinking alcohol,) In addition, no obvious varices were seen on this exam. There is no suggestion of portal hypertensive gastropathy either. He will need to be followed by us post discharge. GRAFT OR IMPLANTS: No grafts or implants. CONDITION: Postprocedure, stable. Lori Figueroa MD MEN/MODL / [id number] SULE[facility]
[2020-10-16] MEDS: hydrOXYzine HCL 25 MG TABLET PO (21:49)
[2020-10-16] MEDS: oxyCODONE HCl Immed Release 5 MG TABLET 10 MG PO (21:49)
[2020-10-17] VITALS (12 sets, daily range): BP systolic 93–99; BP diastolic 52–64; PULSE 70–86; RESP 16–20; TEMP 36.2–36.7; O2SAT 96–100; BMI 18.6
[2020-10-17] MEDS: Morphine Sulfate 2 MG/ML CARTRIDGE IVPUSH ×5 (03:46→21:31)
[2020-10-17] MEDS: Pantoprazole Sodium 40 MG/10 ML VIAL IVPUSH ×2 (06:23→16:29)
[2020-10-17 06:43] LABS: Hematocrit 24.3 % (42-52); Hemoglobin 8.5 g/dl (14.0-18.0); Mean Corpuscular Hemoglobin 31.4 pg (27.0-33.0); Mean Corpuscular Volume 89.7 fL (80-98); Mean Platelet Volume 11.6 fL (9.4-12.4); Platelet Count 297 X10*3/uL (160-400); Red Blood Count 2.71 X10*6/uL (4.60-5.80); Red Cell Distribution Width 15.8 % (11.0-16.0); White Blood Count 8.9 X10*3/uL (4.8-10.8)
[2020-10-17 07:26] LABS: Alanine Aminotransferase 14 U/L (0-40); Albumin Level 1.5 g/dL (3.5-5.0); Alkaline Phosphatase 90 U/L (39-117); Aspartate Amino Transferase 33 U/L (5-37); Bilirubin Direct 0.7 mg/dL (0.0-0.5); Bilirubin Total 0.8 mg/dL (0.0-1.0); Total Protein 5.1 g/dL (6.5-8.0)
[2020-10-17] MEDS: Lipase/Prot/Amylase 24/76/120K 1 CAP CAPSULE.DR PO ×3 (08:09→21:30)
[2020-10-17] MEDS: Midodrine HCl 5 MG TABLET PO ×3 (08:09→21:30)
[2020-10-17] MEDS: Sucralfate Oral Suspension 1 GM/10 ML ORAL.SUSP PO ×4 (08:09→21:30)
[2020-10-17] MEDS: 0.9 % Sodium Chloride Flush 3 ML SYRINGE IVFLUSH ×3 (08:10→21:31)
[2020-10-17] MEDS: Nicotine 21 MG PATCH.TD24 TRANSDERMA (08:10)
[2020-10-17 09:44] LABS: Glucose Urine UA NEG (NEG); Leukocyte Esterase Urine NEG (NEG); Nitrite Urine NEG (NEG); PH 8.5 (5.0-8.0); Specific Gravity - Urine 1.015 (1.005-1.025); Urine Blood NEG (NEG); Urine Ketones NEG (NEG); Urine Protein NEG (NEG-TRACE)
[2020-10-17 09:46] LABS: Appearance Urine CLEAR; Color Urine AMBER
[2020-10-17] MEDS: oxyCODONE HCl Immed Release 5 MG TABLET 10 MG PO ×3 (09:52→23:38)
--- NOTE | 2020-10-17 11:50 | MHC.CLN ---
RE: CONSULT PT IS SEVERELY MALNOURISHED 8OZ ENSURE TID IN PLACE PROVIDES 1050KCALS, 60G PROTEIN (1.0G/KG) RECOMMEND REBAR BENDER EVAL FOR DIET CONSISTENCY/SWALLOW EVAL MAY NEED EN/PPN R/T MALNUTRITION FRAGILE SKIN -WILL START CHARLENE SEE ALSO CLINICAL NUTRITION ASSESSMENT
--- NOTE | 2020-10-17 12:04 | MHC.CM.PN ---
left message for pts guardian abdulaziz thu [phone] re competencey eval pending and possible str needs pt eval will not be ordered till competencey eval completed
--- NOTE | 2020-10-17 13:42 | HO.POSTANES ---
Post Anesthesia Evaluation Post Anesthesia Evaluation Vital Signs: Vital Signs Temp Pulse Resp BP Pulse Ox 10/17/20 13:12 18 10/17/20 12:00 97.2 F 78 20 93/62 99 10/17/20 11:34 18 10/17/20 08:09 70 98/54 L 10/17/20 08:00 97.2 F 78 20 98/52 L 98 10/17/20 03:13 97.4 F 70 18 98/54 L 96 Anesthesia: Monitored Mental Status: Awake Pain Control: Satisfactory Nausea/Vomiting: None Hydration: Adequate Anesthesia-Related Issues: No Anes. Related Issues
[2020-10-17] MEDS: hydrOXYzine HCL 25 MG TABLET PO (14:24)
--- NOTE | 2020-10-17 16:08 | HO.PM.IMPN ---
Subjective Subjective Date of Service: 10/17/20 Interval History: seen and examined this afternoon in the ED d/w him re: need to go rehab -- he wants to go home but willing to think about it denies any bleeding ROS General - no fevers or chills Cardiovascular - no chest pain Respiratory - no shortness of breath or cough Abdominal- +abdominal pain, +nausea Physical Exam Vital Signs: Vital Signs: Last Vital Signs Temp 97.2 F 10/17/20 12:00 Pulse 78 10/17/20 15:59 Resp 18 10/17/20 13:12 BP 93/62 10/17/20 15:59 Pulse Ox 99 10/17/20 12:00 Body Mass Index 18.6 Const: Other: General - no acute distress, appears comfortable Cardiovascular - regular rate and rhythm, S1-S2 Lungs - normal respiratory effort, clear to auscultation bilaterally, no wheezing Abdomen - mildly distended -- no rebound or guarding Extremities - no edema bilaterally Neuro - awake and alert Objective Data Current Medications Generic Name Dose Route Start Last Admin Trade Name Haja PRN Reason Stop Dose Admin Acetaminophen 650 mg 10/13/20 01:22 10/13/20 08:39 Acetaminophen 325 Mg Tablet PO 650 mg Q6H PRN Administration Pain, Mild (Pain Scale 1-3) Lipase/Protease/Amylase 1 cap 10/14/20 15:00 10/17/20 15:59 Lipase/Prot/Amylase 24/76/120k 1 Cap Capsule.Dr PO 1 cap TID LIS Administration Docusate Sodium 100 mg 10/13/20 01:22 Docusate Sodium 100 Mg Capsule PO DAILY PRN Constipation Hydroxyzine HCl 25 mg 10/13/20 01:22 10/17/20 14:24 Hydroxyzine Hcl 25 Mg Tablet PO 25 mg QID PRN Administration Anxiety Midodrine 5 mg 10/13/20 21:00 10/17/20 15:59 Midodrine Hcl 5 Mg Tablet PO 5 mg TID LIS Administration Morphine Sulfate 2 mg 10/13/20 01:54 10/17/20 13:12 Morphine Sulfate 2 Mg/Ml Cartridge IVPUSH 2 mg Q4H PRN Administration Pain, Severe (Pain Scale 7-10) Nicotine 21 mg 10/13/20 09:00 10/17/20 08:10 Nicotine 21 Mg Patch.Td24 TRANSDERMA 21 mg DAILY LIS Administration Ondansetron HCl 4 mg 10/13/20 01:22 10/15/20 13:31 Ondansetron Hcl 4 Mg/2 Ml Vial IVPUSH 4 mg Q8H PRN Administration Nausea and Vomiting Oxycodone HCl 10 mg 10/13/20 01:22 10/17/20 15:59 Oxycodone Hcl Immed Release 5 Mg Tablet PO 10 mg QID PRN Administration Pain (Scale Score 7-10) Pantoprazole Sodium 40 mg 10/16/20 16:30 10/17/20 06:23 Pantoprazole Sodium 40 Mg/10 Ml Vial IVPUSH 40 mg BID@0630,1630 [facility] Administration Pharmacy Consult 1 each 10/12/20 17:56 Consult Rx Perform Med Rec MISCELLANE ONCE PRN Consult order Pharmacy Consult 1 each 10/12/20 19:00 Consult Rx Perform Med Rec MISCELLANE ONCE PRN Consult order Sodium Chloride 3 ml 10/13/20 01:22 10/17/20 16:00 0.9 % Sodium Chloride Flush 3 Ml Syringe IVFLUSH 3 ml QSHIFT [facility] Administration Sucralfate 1 gm 10/16/20 11:30 10/17/20 11:34 Sucralfate Oral Suspension 1 Gm/10 Ml Oral.Susp PO 1 gm QIDACHS [facility] Administration Labs CBC & Chem 7: 10/17/20 05:34 10/15/20 05:56 Microbiology Microbiology Results: Microbiology 10/12/20 21:28 Ascites Fluid Gram Stain - Final 10/12/20 21:28 Ascites Fluid Anaerobic Culture - Preliminary No growth to date. 10/12/20 21:28 Ascites Fluid Body Fluid Culture - Final No growth after 2 days 10/12/20 21:33 Blood - Venous Blood Culture - Preliminary No growth after 48 hours. 10/12/20 20:05 Blood - Venous Blood Culture - Preliminary No growth after 48 hours. Assessment and Plan (1) Ascites: Status: Acute Assessment and Plan: This is a 50 yo M with a history of alcohol abuse and dependence who presents with abodminal pain. He is admitted for fruther work up. 1. Abdominal pain - n/v due to Inflmmatory Esophageal stricture s/p EGD with dilation IV PPI, Carafate, liquid diet, pills crushed GI input appreciated 2. Diarrhea resolved 3. Ascites / alcoholic liver disease no evidence SBP by cell count f/u cultures -- negative to date 4. Hypotension, asymptomatic not due to sepsis, but secondary to alcoholic liver disease midodrine 5. Acute on Chronic anemia h/h slightly dropped this AM, recheck afternoon and transfuse below 8 6. HypoK resolved 7. Severe protein/calorie malnutrition supplements nutrition consult 8. Weakness PT eval Full Code DVT pptx, mechanical due to significant anemia / coagulopathy dispo: tbd home with services vs str
--- NOTE | 2020-10-17 16:17 | MHC.CM.PN ---
CM attempted to contact pts guardian, Eri Schofield ([phone]) to discuss pts disposition and the possibility of him going to a residential facility. The tyler went to and a message was left requesting a call back. CM met with pt who reports he is hoping the check inspector will change his diet so he can work his way up to solids. He reports he also hopes to get some PT so he can be sure he is able to walk when he gets home because he is not going back to a fdc . Pt reports multiple times that he knows he cannot drink and likes t be alone. Pt also explains the poor conditions at the rehab he was in, telling t/w that he was stuck in a room with another pt who controlled the TV all day and yelled at him if he made any noise. Pt reports he spoke to his [facility] who told him she would work on getting DME and home health services arranged. He reports he plans to accept all services offered despite his resistance in the past. EDWIN agrees to discuss a PT eval with hospitalist and will resume discussion with pt once his eval is complete and recommendations known.
[2020-10-17] MEDS: ondansetron HCL 4 MG/2 ML VIAL IVPUSH (23:34)
[2020-10-18] VITALS (10 sets, daily range): BP systolic 90–102; BP diastolic 56–65; PULSE 76–97; RESP 15–18; TEMP 36.2–37.1; O2SAT 97–100
[2020-10-18] MEDS: Morphine Sulfate 4 MG/ML CARTRIDGE IVPUSH (02:46)
[2020-10-18] MEDS: Pantoprazole Sodium 40 MG/10 ML VIAL IVPUSH ×2 (05:32→16:34)
[2020-10-18] MEDS: oxyCODONE HCl Immed Release 5 MG TABLET 10 MG PO ×3 (05:38→18:34)
[2020-10-18 07:26] LABS: Hematocrit 26.3 % (42-52); Hemoglobin 9.4 g/dl (14.0-18.0); Mean Corpuscular HGB Conc 35.7 g/dl (31.0-36.0); Mean Corpuscular Hemoglobin 32.5 pg (27.0-33.0); Mean Platelet Volume 11.7 fL (9.4-12.4); NRBC Pct Auto 0.2 /100WBC (0.0-0.2); Platelet Count 320 X10*3/uL (160-400); Red Blood Count 2.89 X10*6/uL (4.60-5.80); Red Cell Distribution Width 15.9 % (11.0-16.0); White Blood Count 11.3 X10*3/uL (4.8-10.8)
[2020-10-18] MEDS: Nicotine 21 MG PATCH.TD24 TRANSDERMA (08:38)
[2020-10-18] MEDS: Lipase/Prot/Amylase 24/76/120K 1 CAP CAPSULE.DR PO ×3 (08:39→21:28)
[2020-10-18] MEDS: Midodrine HCl 5 MG TABLET PO ×3 (08:39→21:28)
[2020-10-18] MEDS: Sucralfate Oral Suspension 1 GM/10 ML ORAL.SUSP PO ×4 (08:39→21:28)
[2020-10-18] MEDS: 0.9 % Sodium Chloride Flush 3 ML SYRINGE IVFLUSH ×3 (08:39→21:28)
[2020-10-18] MEDS: hydrOXYzine HCL 25 MG TABLET PO ×2 (08:39→18:50)
--- NOTE | 2020-10-18 12:03 | MHC.CM.PN ---
physical therapy is recommending home with servcies ..candice/homa is approving vna for pt and sn pts senior care manager are working on a hospitial bed for pt..pt also has nela/centrifugal casting machine operator services
--- NOTE | 2020-10-18 12:28 | MHC.CM.PN ---
spoke with pts guardian abdulaziz who was made aware of physical theapies receommedation for home pt and sn guardian reports calling back several avelino,es yesterday her phone number is correct
--- NOTE | 2020-10-18 12:35 | MHC.RECOVSUP ---
Recovery Support note: Patient is a 50 year old Chadian speaking male who presented to [facility] [place] due to body aches and was medically admitted. This chief writer and the Recovery Support RN met with patient to discuss his alcohol use and treatment options. Patient reports only 10% of his liver is functioning and that he not survive if he continues to drink. Patient reports he plans to stop drinking entirely, reporting I want to live, so I'm not going to drink anymore. 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 Patient reports maintaining sobriety while incarcerated and states he has been to thousands of AA meetings and he is not interested in going to anymore. Patient reports all his friends are drinkers and while he would like to see them, he knows that he can't drink anymore and he doesn't want to risk it. Patient acknowledges he tried drinking some alcohol prior to arrival however states he was unable to keep it down. Encouraged patient to completely abstain from alcohol and to reach out to support as needed. Patient expressed confidence that he will be able to maintain sobriety. Patient reports a desire to return home and to be able to eat solid food. Patient expressed frustration with his pain level and roommate situation. Discussed case with patient's RN, Tammy Moncada, prior to meeting with patient.
--- NOTE | 2020-10-18 12:54 | MHC.CM.PN ---
pt has been accepted [facility]
--- NOTE | 2020-10-18 16:02 | P.PNIM_ITS ---
Subjective Subjective Date of Service: 10/18/20 Interval History: Patient has multiple complaints has not been sleeping due to noises from the roommate complaining of weakness unable to participate with PT complaining of persistent abdominal pain. Wants to go home. General - no fevers or chills, lack of sleep, weakness Cardiovascular - no chest pain Respiratory - no shortness of breath , no cough Abdominal- +abdominal pain, no nausea Physical Exam Vital Signs: Vital Signs: Last Vital Signs Temp 97.1 F 10/18/20 11:13 Pulse 76 10/18/20 11:13 Resp 17 10/18/20 11:13 BP 96/65 10/18/20 11:13 Pulse Ox 100 10/18/20 11:13 Body Mass Index 18.6 Const: Other: General - no acute distress Cardiovascular - regular rate and rhythm, S1-S2 Lungs - clear to auscultation, diminished breath sound at bases, no wheezing Abdomen - mildly distended , bowel sounds audible, tenderness to palpation Extremities - no edema bilaterally Neuro - awake and alert Objective Data Current Medications Generic Name Dose Route Start Last Admin Trade Name Juarezq PRN Reason Stop Dose Admin Acetaminophen 650 mg 10/13/20 01:22 10/13/20 08:39 Acetaminophen 325 Mg Tablet PO 650 mg Q6H PRN Administration Pain, Mild (Pain Scale 1-3) Lipase/Protease/Amylase 1 cap 10/14/20 15:00 10/18/20 08:39 Lipase/Prot/Amylase 24/76/120k 1 Cap Capsule.Dr PO 1 cap TID LIS Administration Docusate Sodium 100 mg 10/13/20 01:22 Docusate Sodium 100 Mg Capsule PO DAILY PRN Constipation Hydroxyzine HCl 25 mg 10/13/20 01:22 10/18/20 08:39 Hydroxyzine Hcl 25 Mg Tablet PO 25 mg QID PRN Administration Anxiety Midodrine 5 mg 10/13/20 21:00 10/18/20 08:39 Midodrine Hcl 5 Mg Tablet PO 5 mg TID LIS Administration Nicotine 21 mg 10/13/20 09:00 10/18/20 08:38 Nicotine 21 Mg Patch.Td24 TRANSDERMA 21 mg DAILY LIS Administration Ondansetron HCl 4 mg 10/13/20 01:22 10/17/20 23:34 Ondansetron Hcl 4 Mg/2 Ml Vial IVPUSH 4 mg Q8H PRN Administration Nausea and Vomiting Oxycodone HCl 10 mg 10/18/20 02:05 10/18/20 12:05 Oxycodone Hcl Immed Release 5 Mg Tablet PO 5 mg Q6H PRN Administration Pain, Severe (Pain Scale 7-10) Pantoprazole Sodium 40 mg 10/16/20 16:30 10/18/20 05:32 Pantoprazole Sodium 40 Mg/10 Ml Vial IVPUSH 40 mg BID@0630,1630 [facility] Administration Pharmacy Consult 1 each 10/12/20 17:56 Consult Rx Perform Med Rec MISCELLANE ONCE PRN Consult order Pharmacy Consult 1 each 10/12/20 19:00 Consult Rx Perform Med Rec MISCELLANE ONCE PRN Consult order Sodium Chloride 3 ml 10/13/20 01:22 10/18/20 08:39 0.9 % Sodium Chloride Flush 3 Ml Syringe IVFLUSH 3 ml QSHIFT [facility] Administration Sucralfate 1 gm 10/16/20 11:30 10/18/20 12:05 Sucralfate Oral Suspension 1 Gm/10 Ml Oral.Susp PO 1 gm QIDACHS [facility] Administration Labs CBC & Chem 7: 10/18/20 05:37 10/15/20 05:56 Microbiology Microbiology Results: Microbiology 10/12/20 21:28 Ascites Fluid Gram Stain - Final 10/12/20 21:28 Ascites Fluid Anaerobic Culture - Final NO GROWTH AFTER 5 DAYS 10/12/20 21:28 Ascites Fluid Body Fluid Culture - Final No growth after 2 days 10/12/20 21:33 Blood - Venous Blood Culture - Final No growth after 5 days. 10/12/20 20:05 Blood - Venous Blood Culture - Final No growth after 5 days. Assessment and Plan (1) Ascites: Status: Acute (2) Chronic alcoholic pancreatitis: Status: Acute (3) Cirrhosis, alcoholic: Status: Acute (4) Diarrhea: Status: Acute (5) Intractable abdominal pain: Status: Acute (6) Hypomagnesemia: Status: Acute (7) Severe protein-calorie malnutrition: Status: Acute Assessment and Plan: This is a 50 yo M with a history of alcohol abuse and dependence who presents with abodminal pain. He is admitted for fruther work up. 1. Abdominal pain - n/v due to Inflmmatory Esophageal stricture s/p EGD with dilation, persistent abdominal pain but improving, will continue IV PPI, Carafate, full liquid diet, pills crushed Patient seen by Dr. Figueroa patient abdominal pain is multifactorial likely due to esophageal structure underlying chronic pancreatitis and ascites with distended abdomen Continue oxycodone, will avoid IV morphine 2. Diarrhea resolved 3. Ascites / alcoholic liver disease/cirrhosis no evidence SBP by cell count, f/u cultures negative 4. Hypotension, asymptomatic not due to sepsis, but secondary to alcoholic liver disease continue midodrine 5. Acute on Chronic anemia h/h stabilize continue to follow hematocrit closely 6. HypoK resolved 7. Severe protein/calorie malnutrition Continue supplements full liquid diet being followed by front desk coordinator, signif icantly low albumin 1.5 will push by mouth intake 8. Weakness/gross deconditioning Patient seen by Physical therapy and they are recommending home with home physical therapy and use of walker at all times Full Code DVT pptx, mechanical due to significant anemia / coagulopathy dispo: Home with services innext 24 to 48 hrs
[2020-10-18] MEDS: ondansetron HCL 4 MG/2 ML VIAL IVPUSH (22:41)
[2020-10-19] VITALS (10 sets, daily range): BP systolic 79–110; BP diastolic 49–73; PULSE 69–90; RESP 15–18; TEMP 36–36.8; O2SAT 96–100
[2020-10-19] MEDS: hydrOXYzine HCL 25 MG TABLET PO ×4 (00:29→20:29)
[2020-10-19] MEDS: oxyCODONE HCl Immed Release 5 MG TABLET 10 MG PO ×4 (00:29→20:28)
[2020-10-19] MEDS: Acetaminophen 325 MG TABLET 650 MG PO (03:21)
[2020-10-19] MEDS: Pantoprazole Sodium 40 MG/10 ML VIAL IVPUSH ×2 (06:16→16:24)
[2020-10-19] MEDS: ondansetron HCL 4 MG/2 ML VIAL IVPUSH ×2 (08:28→20:29)
[2020-10-19] MEDS: Nicotine 21 MG PATCH.TD24 TRANSDERMA (08:28)
[2020-10-19] MEDS: Sucralfate Oral Suspension 1 GM/10 ML ORAL.SUSP PO ×4 (08:29→20:29)
[2020-10-19] MEDS: Midodrine HCl 5 MG TABLET PO ×3 (08:29→20:29)
[2020-10-19] MEDS: Lipase/Prot/Amylase 24/76/120K 1 CAP CAPSULE.DR PO ×3 (08:30→20:27)
[2020-10-19] MEDS: 0.9 % Sodium Chloride Flush 3 ML SYRINGE IVFLUSH ×2 (08:30→16:24)
--- NOTE | 2020-10-19 12:10 | MHC.CLN ---
F/U PO INTAKE 100% DIET RX: F/L -APPROPRIATE 8OZ ENSURE TID IN PLACE PROVIDES 1050KCALS, 60G PROTEIN (1.0G/KG) CHARLENE IN PLACE FOR FRAGILE SKIN MONITOR MG, PHOS, K+ FOR RE-FEEDING FOLLOWING
[2020-10-19] MEDS: 0.9 % Sodium Chloride 1,000 ML 500 ML IVCONT (12:11)
--- NOTE | 2020-10-19 12:21 | P.PNIM_ITS ---
Subjective Subjective Date of Service: 10/19/20 Interval History: Seen in f/u for generalized decline, adult failure to thrive and severe malnutirition. She is getting better, but still weak, he was able to walk in [place]. He is determined to going home. His BP is low now 79/58--reports no symptoms--fluid bolus is requested. ROS: General - no fevers or chills, lack of sleep, weakness Cardiovascular - no chest pain Respiratory - no shortness of breath , no cough Abdominal- +abdominal pain, no nausea Physical Exam Vital Signs: Vital Signs: Last Vital Signs Temp 96.8 F 10/19/20 11:47 Pulse 69 10/19/20 11:47 Resp 17 10/19/20 11:47 BP 79/58 L 10/19/20 11:47 Pulse Ox 100 10/19/20 11:47 Body Mass Index 18.6 Const: Other: General - no acute distress Cardiovascular - regular rate and rhythm, S1-S2 Lungs - clear to auscultation, diminished breath sound at bases, no wheezing Abdomen - mildly distended , bowel sounds audible, tenderness to palpation Extremities - no edema bilaterally Neuro - awake and alert Objective Data Current Medications Generic Name Dose Route Start Last Admin Trade Name Freq PRN Reason Stop Dose Admin Acetaminophen 650 mg 10/13/20 01:22 10/19/20 03:21 Acetaminophen 325 Mg Tablet PO 650 mg Q6H PRN Administration Pain, Mild (Pain Scale 1-3) Lipase/Protease/Amylase 1 cap 10/14/20 15:00 10/19/20 08:30 Lipase/Prot/Amylase 24/76/120k 1 Cap Capsule.Dr PO 1 cap TID LIS Administration Docusate Sodium 100 mg 10/13/20 01:22 Docusate Sodium 100 Mg Capsule PO DAILY PRN Constipation Hydroxyzine HCl 25 mg 10/13/20 01:22 10/19/20 06:21 Hydroxyzine Hcl 25 Mg Tablet PO 25 mg QID PRN Administration Anxiety Sodium Chloride 1,000 mls @ 500 mls/hr 10/19/20 11:59 10/19/20 12:11 Ns IVCONT 10/19/20 13:58 500 mls/hr .Q2H ONE Administration Midodrine 5 mg 10/13/20 21:00 10/19/20 08:29 Midodrine Hcl 5 Mg Tablet PO 5 mg TID LIS Administration Nicotine 21 mg 10/13/20 09:00 10/19/20 08:28 Nicotine 21 Mg Patch.Td24 TRANSDERMA 21 mg DAILY [facility] Administration Ondansetron HCl 4 mg 10/13/20 01:22 10/19/20 08:28 Ondansetron Hcl 4 Mg/2 Ml Vial IVPUSH 4 mg Q8H PRN Administration Nausea and Vomiting Oxycodone HCl 10 mg 10/18/20 02:05 10/19/20 06:21 Oxycodone Hcl Immed Release 5 Mg Tablet PO 10 mg Q6H PRN Administration Pain, Severe (Pain Scale 7-10) Pantoprazole Sodium 40 mg 10/16/20 16:30 10/19/20 06:16 Pantoprazole Sodium 40 Mg/10 Ml Vial IVPUSH 40 mg BID@0630,1630 [facility] Administration Pharmacy Consult 1 each 10/12/20 17:56 Consult Rx Perform Med Rec MISCELLANE ONCE PRN Consult order Pharmacy Consult 1 each 10/12/20 19:00 Consult Rx Perform Med Rec MISCELLANE ONCE PRN Consult order Sodium Chloride 3 ml 10/13/20 01:22 10/19/20 08:30 0.9 % Sodium Chloride Flush 3 Ml Syringe IVFLUSH 3 ml QSHIFT [facility] Administration Sucralfate 1 gm 10/16/20 11:30 10/19/20 08:29 Sucralfate Oral Suspension 1 Gm/10 Ml Oral.Susp PO 1 gm QIDACHS [facility] Administration Labs CBC & Chem 7: 10/18/20 05:37 10/15/20 05:56 Microbiology Microbiology Results: Microbiology 10/12/20 21:28 Ascites Fluid Gram Stain - Final 10/12/20 21:28 Ascites Fluid Anaerobic Culture - Final NO GROWTH AFTER 5 DAYS 10/12/20 21:28 Ascites Fluid Body Fluid Culture - Final No growth after 2 days 10/12/20 21:33 Blood - Venous Blood Culture - Final No growth after 5 days. 10/12/20 20:05 Blood - Venous Blood Culture - Final No growth after 5 days. Assessment and Plan (1) Ascites: Status: Acute (2) Chronic alcoholic pancreatitis: Status: Acute (3) Cirrhosis, alcoholic: Status: Acute (4) Diarrhea: Status: Acute (5) Intractable abdominal pain: Status: Acute (6) Hypomagnesemia: Status: Acute (7) Severe protein-calorie malnutrition: Status: Acute Assessment and Plan: This is a 50 yo M with a history of alcohol abuse and dependence who presents with abodminal pain. He is admitted for fruther work up. 1. Abdominal pain - n/v due to Inflmmatory Esophageal stricture s/p EGD with dilation, persistent abdominal pain but improving, will continue IV PPI, Carafate, full liquid diet, pills crushed Patient seen by Dr. Figueroa patient abdominal pain is multifactorial likely due to esophageal structure underlying chronic pancreatitis and ascites with distended abdomen Continue oxycodone, will avoid IV morphine 2. Diarrhea resolved, check cdif if comes back 3. Ascites / alcoholic liver disease/cirrhosis no evidence SBP by cell count, f/u cultures negative 4. Hypotension, asymptomatic not due to sepsis, but secondary to alcoholic liver disease continue midodrine and give some IVF today 5. Acute on Chronic anemia h/h stabilize continue to follow hematocrit closely 6. HypoK resolved 7. Severe protein/calorie malnutrition Continue supplements full liquid diet being followed by engineering psychologist, significantly low albumin 1.5 will push by mouth intake 8. Weakness/gross deconditioning Patient seen by Physical therapy and they are recommending home with home physical therapy and use of walker at all times Full Code DVT pptx, mechanical due to significant anemia / coagulopathy dispo: Home with services innext 24 to 48 hrs
--- NOTE | 2020-10-19 14:40 | MHC.CM.PN ---
spoke with homa from [facility] notified her of likely dc , [facility] are arranging for [facility] hospitial bed ,t/w requersted script from dr cerda. homa has also approved transportaion for pt to go home pt states he has a garay he asked about pain meds ,explined that he would need to talk with md about medication
[2020-10-20] VITALS (8 sets, daily range): BP systolic 91–99; BP diastolic 51–60; PULSE 69–99; RESP 18; TEMP 36.4–37.3; O2SAT 96–99
[2020-10-20] MEDS: 0.9 % Sodium Chloride Flush 3 ML SYRINGE IVFLUSH ×3 (02:50→15:47)
[2020-10-20] MEDS: oxyCODONE HCl Immed Release 5 MG TABLET 10 MG PO ×4 (03:55→22:19)
[2020-10-20] MEDS: ondansetron HCL 4 MG/2 ML VIAL IVPUSH ×3 (04:36→20:12)
[2020-10-20] MEDS: Midodrine HCl 5 MG TABLET PO ×3 (09:49→20:16)
[2020-10-20] MEDS: Lipase/Prot/Amylase 24/76/120K 1 CAP CAPSULE.DR PO ×3 (09:49→20:17)
[2020-10-20] MEDS: Nicotine 21 MG PATCH.TD24 TRANSDERMA (09:50)
[2020-10-20] MEDS: Sucralfate Oral Suspension 1 GM/10 ML ORAL.SUSP PO ×4 (09:50→20:17)
--- NOTE | 2020-10-20 11:44 | HO.PM.IMPN ---
Subjective Subjective Date of Service: 10/20/20 Interval History: Seen in f/u for generalized decline, adult failure to thrive and severe malnutirition. She is getting better, but still weak, he was able to walk in [place]. He is determined to going home. His blood pressure is better today. He is reporting excruciating abdominal pain to the point where he is not able to eat. ROS: General - no fevers or chills, lack of sleep, weakness Cardiovascular - no chest pain Respiratory - no shortness of breath , no cough Abdominal- +abdominal pain, no nausea Physical Exam Vital Signs: Vital Signs: Last Vital Signs Temp 97.6 F 10/20/20 11:14 Pulse 72 10/20/20 11:14 Resp 18 10/20/20 11:14 BP 92/52 L 10/20/20 11:14 Pulse Ox 97 10/20/20 11:14 Body Mass Index 18.6 Const: Other: General - no acute distress Cardiovascular - regular rate and rhythm, S1-S2 Lungs - clear to auscultation, diminished breath sound at bases, no wheezing Abdomen - mildly distended , bowel sounds audible, tenderness to palpation Extremities - no edema bilaterally Neuro - awake and alert Objective Data Current Medications Generic Name Dose Route Start Last Admin Trade Name Freq PRN Reason Stop Dose Admin Acetaminophen 650 mg 10/13/20 01:22 10/19/20 03:21 Acetaminophen 325 Mg Tablet PO 650 mg Q6H PRN Administration Pain, Mild (Pain Scale 1-3) Lipase/Protease/Amylase 1 cap 10/14/20 15:00 10/20/20 09:49 Lipase/Prot/Amylase 24/76/120k 1 Cap Capsule.Dr PO 1 cap TID LIS Administration Docusate Sodium 100 mg 10/13/20 01:22 Docusate Sodium 100 Mg Capsule PO DAILY PRN Constipation Hydroxyzine HCl 25 mg 10/13/20 01:22 10/19/20 20:29 Hydroxyzine Hcl 25 Mg Tablet PO 25 mg QID PRN Administration Anxiety Midodrine 5 mg 10/13/20 21:00 10/20/20 09:49 Midodrine Hcl 5 Mg Tablet PO 5 mg TID LIS Administration Nicotine 21 mg 10/13/20 09:00 10/20/20 09:50 Nicotine 21 Mg Patch.Td24 TRANSDERMA 21 mg DAILY LIS Administration Ondansetron HCl 4 mg 10/13/20 01:22 10/20/20 04:36 Ondansetron Hcl 4 Mg/2 Ml Vial IVPUSH 4 mg Q8H PRN Administration Nausea and Vomiting Oxycodone HCl 10 mg 10/18/20 02:05 10/20/20 09:49 Oxycodone Hcl Immed Release 5 Mg Tablet PO 10 mg Q6H PRN Administration Pain, Severe (Pain Scale 7-10) Pharmacy Consult 1 each 10/12/20 17:56 Consult Rx Perform Med Rec MISCELLANE ONCE PRN Consult order Pharmacy Consult 1 each 10/12/20 19:00 Consult Rx Perform Med Rec MISCELLANE ONCE PRN Consult order Sodium Chloride 3 ml 10/13/20 01:22 10/20/20 09:50 0.9 % Sodium Chloride Flush 3 Ml Syringe IVFLUSH 3 ml QSHIFT LIS Administration Sucralfate 1 gm 10/16/20 11:30 10/20/20 09:50 Sucralfate Oral Suspension 1 Gm/10 Ml Oral.Susp PO 1 gm QIDACHS [facility]IS Administration Labs CBC & Chem 7: 10/18/20 05:37 10/15/20 05:56 Microbiology Microbiology Results: Microbiology 10/12/20 21:28 Ascites Fluid Gram Stain - Final 10/12/20 21:28 Ascites Fluid Anaerobic Culture - Final NO GROWTH AFTER 5 DAYS 10/12/20 21:28 Ascites Fluid Body Fluid Culture - Final No growth after 2 days 10/12/20 21:33 Blood - Venous Blood Culture - Final No growth after 5 days. 10/12/20 20:05 Blood - Venous Blood Culture - Final No growth after 5 days. Assessment and Plan (1) Ascites: Status: Acute (2) Chronic alcoholic pancreatitis: Status: Acute (3) Cirrhosis, alcoholic: Status: Acute (4) Diarrhea: Status: Acute (5) Intractable abdominal pain: Status: Acute (6) Hypomagnesemia: Status: Acute (7) Severe protein-calorie malnutrition: Status: Acute Assessment and Plan: 50 yo M with a history of alcohol abuse and dependence who presents with abodminal pain. He is admitted for fruther work up. 1. Abdominal pain - n/v due to Inflmmatory Esophageal stricture s/p EGD with dilation, persistent abdominal pain seem worse today will continue IV PPI, Carafate, full liquid diet, pills crushed Patient seen by Dr. Figueroa patient abdominal pain is multifactorial likely due to esophageal structure underlying chronic pancreatitis and ascites with distended abdomen Continue oxycodone, will avoid IV morphine. Will discuss need for PEG with Dr. Figueroa 2. Diarrhea resolved, check cdif if comes back 3. Ascites / alcoholic liver disease/cirrhosis no evidence SBP by cell count, f/u cultures negative 4. Hypotension, asymptomatic not due to sepsis, but secondary to alcoholic liver disease continue midodrine and give some IVF today 5. Acute on Chronic anemia h/h stabilize continue to follow hematocrit closely 6. HypoK resolved 7. Severe protein/calorie malnutrition Continue supplements full liquid diet being followed by home lending officer, significantly low albumin 1.5 will push by mouth intake. ? PEG to optimized his nutrition 8. Weakness/gross deconditioning Patient seen by Physical therapy and they are recommending home with home physical therapy and use of walker at all times Full Code DVT pptx, mechanical due to significant anemia / coagulopathy dispo: Home with services innext 24 to 48 hrs
--- NOTE | 2020-10-20 12:39 | MHC.CM.PN ---
DP no DC today. Update sent to [facility]. CM will need to set up transport @ [facility]. CM will follow.
[2020-10-20] MEDS: hydrOXYzine HCL 25 MG TABLET PO (20:15)
[2020-10-20] MEDS: Acetaminophen 325 MG TABLET 650 MG PO (20:19)
[2020-10-21] MEDS: 0.9 % Sodium Chloride Flush 3 ML SYRINGE IVFLUSH (00:12)
[2020-10-21] MEDS: traZODone HCL 25 MG HALFTAB PO (01:12)
[2020-10-21] MEDS: Morphine Sulfate 2 MG/ML CARTRIDGE IVPUSH ×2 (01:13→05:14)
[2020-10-21 03:32] VITALS: BP 99/59; PULSE 83; RESP 18; TEMP 36.8; O2SAT 98
--- NOTE | 2020-10-21 04:00 | MHC.PIE ---
late intry oooo p; pt c/o pain 05/23 to abd and generalized body; noted pt given prn oxy at 2218 with little effect. pt also c/o insomnia i; dr renner notified; new order, trazodone 25 mg po now, morphine 2mg iv q4 x3 e; pt asleep in bed no sign of pain noted, will cont to monitor
[2020-10-21] MEDS: oxyCODONE HCl Immed Release 5 MG TABLET 10 MG PO ×3 (04:24→14:16)
[2020-10-21] MEDS: Acetaminophen 325 MG TABLET 650 MG PO (04:31)
[2020-10-21] MEDS: ondansetron HCL 4 MG/2 ML VIAL IVPUSH (04:32)
[2020-10-21] MEDS: Sucralfate Oral Suspension 1 GM/10 ML ORAL.SUSP PO (07:49)
[2020-10-21] MEDS: Nicotine 21 MG PATCH.TD24 TRANSDERMA (07:50)
[2020-10-21 08:00] VITALS: BP 91/54; PULSE 69; RESP 20; TEMP 36.7; O2SAT 98
[2020-10-21] MEDS: Midodrine HCl 5 MG TABLET PO ×2 (08:25→14:16)
[2020-10-21] MEDS: hydrOXYzine HCL 25 MG TABLET PO (08:26)
[2020-10-21] MEDS: Lipase/Prot/Amylase 24/76/120K 1 CAP CAPSULE.DR PO ×2 (08:26→14:16)
--- NOTE | 2020-10-21 10:28 | PM.DS ---
DS: Providers Provider Date of Service: 11/14/20 Date of admission: 10/14/20 11:17 Primary care physician: Unknown Physician Consults: 10/14/20 12:10 Consult to Gastroenterology Routine Consulting Provider: Lori Figueroa Reason for consultation: abdominal pain, chronic pancreatitis DS: Diagnosis Discharge Diagnosis (1) Ascites: Status: Acute (2) Chronic alcoholic pancreatitis: Status: Acute (3) Cirrhosis, alcoholic: Status: Acute (4) Diarrhea: Status: Acute (5) Intractable abdominal pain: Status: Acute (6) Hypomagnesemia: Status: Acute (7) Severe protein-calorie malnutrition: Status: Acute DS: Medications Discharge Medications Home Medications: Home Medications Medication Instructions Recorded Confirmed furosemide 20 mg PO DAILY 10/12/20 10/12/20 hydroxyzine HCl 25 mg PO QID PRN 10/12/20 10/12/20 [id number] [Zenpep] 1 cap PO TID 10/12/20 10/12/20 oxycodone 10 mg PO QID PRN 10/12/20 10/12/20 DS: Summary Hospital Course Hospital Course: Chief Complaint: Abdominal pain This is a 50-year-old male with past medical history of liver cirrhosis secondary to alcoholism, hypertension, pancreatitis, PTSD, seizure who presents to the hospital with complaints of generalized body ache worse in the belly. Patient reports that his abdomen has been hurting for the past 4 days, nonradiating, 10/10, associated with chills but no fever, has some nausea, and constant diarrhea all day, he has no urinary symptoms and no lower extremity edema. Patient reports that he has not gotten his paracentesis since April and would like to have his abdomen drained. Patient denies any other symptoms including no headache, change in vision, no chest pain, no shortness of breath, no weakness or tingling. to the ED found to have a blood pressure of 95/64, temp of 99.8?, heart rate of 92, respiratory rate of 16, satting 98% on room air. Hospital course: 1. Abdominal pain - n/v due to Inflmmatory Esophageal stricture s/p EGD with dilation, persistent abdominal pain treated with IV PPI, Carafate and sarted with full liquid diet that is being advanced as tolated. Pills are to be crused Patient seen by Dr. Figueroa patient abdominal pain is multifactorial likely due to esophageal structure underlying chronic pancreatitis and ascites with distended abdomen Continue oxycodone for pain 2. Diarrhea--resolved and less likely Cdif 3. Ascites / alcoholic liver disease/cirrhosis s/p Paracentesis no evidence SBP by cell count, f/u cultures negative 4. Hypotension, asymptomatic not due to sepsis, but secondary to alcoholic liver disease continue midodrine, will adjust to 10 bid 5. Acute on Chronic anemia--H/H is now stable. No active bleed 6. HypoK resolved 7. 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 Discussed PEG and not interested at this time. 8. Weakness/gross deconditioning Patient seen by Physical therapy and they are recommending home with home physical therapy and use of walker at all times--He adamantly refuses rehab despite potentially failing at home. Hospital: Time Spent with Patient Time attestation: Total time spent providing and/or coordinating discharge services: Discharge coordination time: Greater than 30 minutes Physical Exam Vital Signs: Vital Signs: Last Vital Signs Temp 98.1 F 10/21/20 08:00 Pulse 69 10/21/20 08:00 Resp 20 10/21/20 08:00 BP 91/54 L 10/21/20 08:00 Pulse Ox 98 10/21/20 08:00 Body Mass Index 18.6 DS: Data Data Completed and Pending Labs on day of discharge: 10/12/20 10:14 CPK [Creatine Kinase Total] Stat 10/12/20 17:56 Morphine Sulfate 4 mg IVPUSH ONCE ONE ondansetron HCL [Zofran] 4 mg IVPUSH ONCE ONE 10/12/20 17:57 ECG 12 lead EKG Stat EKG Documentation DIRECTED CT abdomen pelvis wo con Stat CT chest wo con Stat 10/12/20 18:04 Albumin Human 25 % [Kedbumin 25 %] 100 ml IV ONCE fentaNYL citrate/PF [Sublimaze] 25 mcg IVPUSH ONCE ONE 10/12/20 18:45 0.9 % Sodium Chloride [Ns] 500 ml IV 500 mls/hr 10/12/20 18:59 cefTRIAXone sodium [Rocephin] 1 gm 0.9 % Sodium Chloride [Ns] 50 ml IV ONCE 10/12/20 19:16 cefTRIAXone sodium [Rocephin] 1 gm .ROUTE .STK-MED ONE 10/12/20 20:05 Calcium Stat Lactate Dehydrogenase Stat Lactic Acid Stat Lipase Stat Liver Panel Stat Magnesium Stat Partial Thromboplastin Time Stat Prothrombin Time INR Stat 10/12/20 20:06 Ammonia Stat B Type Natriuretic Peptide Stat Basic Metabolic Panel Stat COVID-19 ID NOW (Stephen) Stat Complete Blood Count Auto Diff Stat SLIDE REVIEW Stat 10/12/20 20:07 Ethanol Stat 10/12/20 20:42 Lidocaine HCl 2 % MPF [Xylocaine 2 % MPF] 5 ml SUBCUT ONCE ONE fentaNYL citrate/PF [Sublimaze] 25 mcg IVPUSH ONCE ONE 10/12/20 20:43 Albumin Human 25 % [Kedbumin 25 %] 100 ml IV ONCE 10/12/20 21:22 Magnesium Sulfate/H2O 2 gm in 50 ml IV ONCE 10/12/20 21:28 Albumin Peritoneal Fluid Stat Cell Ct wDiff Peritoneal FL Stat Glucose Peritoneal Fluid Stat LDH Peritoneal Fluid Stat Total Protein Peritoneal Fluid Stat pH Peritoneal Fluid Stat Fluid Culture + GS Stat 10/12/20 21:33 Blood Culture X2 [BC] Stat 10/12/20 22:54 Midodrine HCl [ProAmatine] 5 mg PO ONCE ONE 10/12/20 23:33 Transfer Order Routine 10/13/20 01:22 oxyCODONE HCl Immed Release [Roxicodone] 10 mg PO QID PRN US abdomen complete Stat 10/13/20 01:22 IV insert/maintain Q4HR Intake and Output Q8HR Vital Signs Q4HR 10/13/20 01:54 Morphine Sulfate 2 mg IVPUSH Q4H PRN 10/13/20 02:44 CDiff with Reflex to PCR Stat 10/13/20 05:32 Basic Metabolic Panel Routine Complete Blood Count Auto Diff Routine 10/13/20 06:33 Assess CIWA scale Q4HR 10/13/20 07:00 Heparin Sodium,Porcine 5,000 unit SUBCUT Q12H 10/13/20 09:00 Furosemide [Lasix] 20 mg PO DAILY 10/13/20 Breakfast Regular Diet 10/13/20 16:30 Omeprazole [PriLOSEC] 20 mg PO BID@0630,1630 10/13/20 16:49 Potassium Chloride ER [Klor-con] 40 meq PO ONCE ONE 10/13/20 18:30 RT Smoking Initial Cessation ONCE 10/13/20 18:39 Hemoglobin and Hematocrit Stat 10/14/20 05:59 Complete Blood Count no Diff DAILY@0600 10/14/20 10:06 Basic Metabolic Panel Routine Lipase Routine Liver Panel Routine 10/14/20 12:15 Pantoprazole Sodium [Protonix] 40 mg IVPUSH DAILY@0630 10/14/20 12:18 Add Laboratory Test Routine 10/14/20 Lunch Clear Liquid Diet 10/15/20 05:56 Basic Metabolic Panel DAILY@0600 Complete Blood Count no Diff DAILY@0600 Liver Panel DAILY@0600 10/15/20 Lunch Regular Diet 10/16/20 06:30 Omeprazole [PriLOSEC] 40 mg PO DAILY@0630 10/16/20 Breakfast NPO Diet 10/16/20 10:24 Continuous pulse oximetry CONT Vital Signs Q5MIN 10/16/20 10:28 Lidocaine HCl 2 % MPF [Xylocaine 2 % MPF] 5 ml .ROUTE .STK-MED ONE 10/16/20 10:29 propofoL [Diprivan] 200 mg IVPUSH .STK-MED ONE 10/16/20 10:30 Lactated Ringers [Lr] 1,000 ml IVCONT 100 mls/hr 10/16/20 Lunch Full Liquid Diet 10/16/20 16:30 Pantoprazole Sodium [Protonix] 40 mg IVPUSH BID@0630,1630 10/17/20 05:34 Complete Blood Count no Diff DAILY@0600 Liver Panel DAILY@0600 10/17/20 09:15 UA CC w/rflx Micro + Cult Stat 10/17/20 Lunch Full Liquid Diet 10/18/20 02:23 Morphine Sulfate 4 mg IVPUSH ONCE PRN 10/18/20 05:37 Complete Blood Count no Diff DAILY@0600 10/19/20 11:59 0.9 % Sodium Chloride [Ns] 1,000 ml IVCONT 500 mls/hr 10/21/20 00:46 traZODone HCL [Desyrel] 25 mg PO ONCE ONE Laboratory Last Values WBC 11.3 X10*3/uL (4.8-10.8) H 10/18/20 05:37 RBC 2.89 X10*6/uL (4.60-5.80) L 10/18/20 05:37 Hgb 9.4 g/dl (14.0-18.0) L 10/18/20 05:37 Hct 26.3 % (42-52) L 10/18/20 05:37 MCV 91.0 fL (80-98) 10/18/20 05:37 MCH 32.5 pg (27.0-33.0) 10/18/20 05:37 MCHC 35.7 g/dl (31.0-36.0) 10/18/20 05:37 RDW 15.9 % (11.0-16.0) 10/18/20 05:37 Plt Count 320 X10*3/uL (160-400) 10/18/20 05:37 MPV 11.7 fL (9.4-12.4) 10/18/20 05:37 Immature Gran % (Auto) 0.3 % (0.0-0.4) 10/13/20 05:32 Neut % (Auto) 67.1 % (45-73) 10/13/20 05:32 Lymph % (Auto) 19.1 % (20-40) L 10/13/20 05:32 [place] % (Auto) 12.9 % (2-11) H 10/13/20 05:32 Eos % (Auto) 0.1 % (0-4) 10/13/20 05:32 Baso % (Auto) 0.5 % (0-2) 10/13/20 05:32 Lymph # (Auto) 2.5 X10*3/uL (1.2-4.9) 10/13/20 05:32 [place] # (Auto) 1.7 X10*3/uL (0.1-1.2) H 10/13/20 05:32 Eos # (Auto) 0.0 X10*3/uL (0.0-0.4) 10/13/20 05:32 Baso # (Auto) 0.1 X10*3/uL (0.0-0.2) 10/13/20 05:32 Abs Immat Gran (auto) 0.04 X10*3/uL (0.00-0.03) H 10/13/20 05:32 Absolute Neuts (auto) 8.7 X10*3/uL (2.0-8.3) H 10/13/20 05:32 Absolute Nucleated RBC 0.020 X10*3/uL (0.0-0.012) H 10/18/20 05:37 Nucleated RBC % (auto) 0.2 /100WBC (0.0-0.2) 10/18/20 05:37 Smear Tech's Comments VERIFIED 10/12/20 20:06 PT 19.4 SEC (10.8-13.0) H 10/12/20 20:05 INR 1.6 (0.9-1.1) H 10/12/20 20:05 APTT 37.7 SEC (24.1-38.0) 10/12/20 20:05 Sodium 132 mmol/L (135-145) L 10/15/20 05:56 Potassium 3.7 mmol/l (3.3-5.1) 10/15/20 05:56 Chloride 103 mmol/L (96-108) 10/15/20 05:56 Carbon Dioxide 22 mmol/L (22-29) 10/15/20 05:56 Anion Gap 11 (12-20) L 10/15/20 05:56 BUN 7 mg/dL (9-16) L 10/15/20 05:56 Creatinine 0.45 mg/dL (0.5-1.4) L 10/15/20 05:56 Estim Creat Clear Calc 165.1 10/15/20 05:56 Estimated GFR > 60 10/15/20 05:56 Random Glucose 95 mg/dL (60-115) 10/15/20 05:56 Lactic Acid 1.8 mmol/L (0.5-2.0) 10/12/20 20:05 Calcium 7.1 mg/dL (8.4-10.2) L 10/15/20 05:56 Magnesium 1.5 mg/dL (1.6-2.6) L 10/12/20 20:05 Total Bilirubin 0.8 mg/dL (0.0-1.0) 10/17/20 05:34 Direct Bilirubin 0.7 mg/dL (0.0-0.5) H 10/17/20 05:34 AST 33 U/L (5-37) 10/17/20 05:34 ALT 14 U/L (0-40) 10/17/20 05:34 Alkaline Phosphatase 90 U/L (39-117) 10/17/20 05:34 Ammonia 55 umol/L (13-55) 10/12/20 20:06 Lactate Dehydrogenase 161 U/L (118-273) 10/12/20 20:05 Total Creatine Kinase 32 U/L (38-174) L 10/12/20 10:14 B-Natriuretic Peptide 105 pg/mL (<100) H 10/12/20 20:06 Total Protein 5.1 g/dL (6.5-8.0) L 10/17/20 05:34 Albumin 1.5 g/dL (3.5-5.0) L 10/17/20 05:34 Lipase 59 U/L (8-78) 10/14/20 10:06 Urine Color EMILY 10/17/20 09:15 Urine Appearance CLEAR 10/17/20 09:15 Urine pH 8.5 (5.0-8.0) H 10/17/20 09:15 Ur Specific [place] 1.015 (1.005-1.025) 10/17/20 09:15 Urine Protein NEG MG/DL (NEG-TRACE) 10/17/20 09:15 Urine Glucose (UA) NEG MG/DL (NEG) 10/17/20 09:15 Urine Ketones NEG MG/DL (NEG) 10/17/20 09:15 Urine Blood NEG (NEG) 10/17/20 09:15 Urine Nitrite NEG (NEG) 10/17/20 09:15 Ur Leukocyte Esterase NEG (NEG) 10/17/20 09:15 Peritoneal pH 7.66 10/12/20 21:28 Peritoneal WBC < 0.003 X10*3/uL 10/12/20 21:28 Peritoneal RBC < 0.002 X10*6/uL 10/12/20 21:28 Periton Neutrophils 17 % 10/12/20 21:28 Peritoneal Monocytes 83 % 10/12/20 21:28 Peritoneal Tot Protein 1.4 10/12/20 21:28 Peritoneal Albumin 0.6 10/12/20 21:28 Peritoneal LDH 48 10/12/20 21:28 Peritoneal Glucose 100 10/12/20 21:28 Ethyl Alcohol < 10 mg/dL 10/12/20 20:07 C. difficile Toxin A&B Negative (Negative) 10/13/20 02:44 C. difficile Antigen Negative (Negative) 10/13/20 02:44 C. difficile Interpret SEE NOTE 10/13/20 02:44 COVID-19 (SANAZ) Negative (Negative) 10/12/20 20:06 COVID-19 Clin Com See Note 10/12/20 20:06 Discharge Plan Discharge Anticipated Discharge Date/Time: 10/21/20 10:05 Patient Disposition: Home Health Service Referrals: [facility] [Outside] Physician,Unknown [Primary Care Provider] - Discharge Medications: New sucralfate 100 mg/mL Suspension 1 g PO QIDACHS Qty: 120 RF: 0 Creon 24,000-76,000 -120,000 unit Capsule,Delayed Release(Dr/Ec) 1 cap PO TID Qty: 120 RF: 0 midodrine 5 mg Tablet 10 mg PO BID Qty: 60 RF: 0 oxycodone 5 mg Tablet 10 mg PO Q6H PRN (Reason: Pain, Severe (Pain Scale 7-10)) Qty: 24 RF: 0 Continued hydroxyzine HCl 25 mg Tablet 25 mg PO QID PRN (Reason: Anxiety) RF: 0 furosemide 20 mg tablet 20 mg PO DAILY RF: 0 oxycodone 10 mg tablet 10 mg PO QID PRN (Reason: Pain (Scale Score 7-10)) RF: 0 Zenpep 5,000-17,000- 24,000 unit capsule,delayed release(DR/EC) 1 cap PO TID RF: 0 Discharge Orders: Discharge Order (Routine); Ordered 10/21/20 Ordered By: Conrad Fletcher Diet: advance to usual diet Activity on Discharge: As tolerated Visit Report Forms: Patient Portal Discharge page Care Plan Goals: Improve nutrition Health Concerns: Severe malnutrition, and chronic alcoholism Plan of Treatment: Avoid alcohol at all cost, eat as much as possible follow up with Dr. Figueroa. Discharge Date/Time: 10/21/20 14:41
[2020-10-21 10:32] VITALS: BP 91/54; PULSE 69; O2SAT 98
[2020-10-21 12:00] VITALS: BP 92/56; PULSE 78; RESP 20; TEMP 36.8; O2SAT 99
--- NOTE | 2020-10-21 12:14 | MHC.CLN ---
F/U PO INTAKE VARIABLE-REFUSED A MEAL YESTERDAY DIET RX: LOW RESIDUE WILL RE-START 8OZ ENSURE TID IN PLACE PROVIDES 1050KCALS, 60G PROTEIN (1.0G/KG) AND CHARLENE IN PLACE FOR FRAGILE SKIN FOLLOWING
--- NOTE | 2020-10-21 13:01 | MHC.CM.PN ---
pt to be dcd at 2:30 by chair holland with [facility] who will be getting a pt a hospitial bed
--- NOTE | 2020-10-21 13:07 | MHC.CM.PN ---
homa from [facility] notified of dc[facility] mailbox was full unable to leave message braxton ingram [phone]
== END 2020-10-21 14:41 | disposition home health service (06) | DRG 432 ==
LOC: HO.ED 21:33 → HO.IMC 10-13 15:41
PROVIDERS: Family Medicine; Internal Medicine Gastroenterology; Admitting Provider Internal Medicine; Emergency Provider Emergency Medicine; Visit Provider Internal Medicine
PROC: 0DJ08ZZ Inspection of Upper Intestinal Tract, Via Natural or Artificial Opening Endoscopic (ICD-10-PCS; CPT 43235; principal; 2020-10-16 09:40)
DX: K70.31 Alcoholic cirrhosis of liver with ascites (principal); E43 Unspecified severe protein-calorie malnutrition; Z68.1 Body mass index [BMI] 19.9 or less, adult; K86.0 Alcohol-induced chronic pancreatitis; K22.2 Esophageal obstruction; K21.9 Gastro-esophageal reflux disease without esophagitis; F43.10 Post-traumatic stress disorder, unspecified; I95.9 Hypotension, unspecified; E87.6 Hypokalemia; E83.42 Hypomagnesemia; Z20.828 Contact with and (suspected) exposure to other viral communicable diseases; Z87.891 Personal history of nicotine dependence; Z79.899 Other long term (current) drug therapy
CPT/HCPCS: 36415; 71250; 74176; 76700; 80048; 80076; 80320; 81003; 82042; 82140; 82310; 82550; 82945; 83605; 83615; 83690; 83735; 83880; 83986; 84157; 85014; 85018; 85025; 85027; 85610; 85730; 87040; 87070; 87071; 87073; 87205; 87324; 87449; 87635; 89051; 93005; 96365; 96367; 96375; 96376; 97116; 97163; 97530; 99285; 99291; J0696; J2270; J2405; J3010; J3475; P9047